=== PATIENT | female | born 1995 | race Caucasian/White ===

== ENCOUNTER 2016-07-08 01:29 | Outpatient (CLI) | payer SELFPAY ==
[2016-07-08 02:26] LABS: APPEARANCE,URINE CLEAR; BILIRUBIN,URINE NEGATIVE (NEGATIVE); GLUCOSE, URINE NEGATIVE (NEGATIVE); KETONES,URINE NEGATIVE (NEGATIVE); LEUKOCYTE ESTERASE,URINE NEGATIVE (NEGATIVE); NITRITE,URINE NEGATIVE (NEGATIVE); PROTEIN,URINE NEGATIVE (NEGATIVE); URINE SPECIFIC GRAVITY 1.012; UROBILINOGEN,URINE NEGATIVE mg/dL (<2.0)
[2016-07-08 03:48] LABS: APPEARANCE,URINE CLEAR; BILIRUBIN,URINE NEGATIVE (NEGATIVE); GLUCOSE, URINE NEGATIVE (NEGATIVE); KETONES,URINE NEGATIVE (NEGATIVE); LEUKOCYTE ESTERASE,URINE NEGATIVE (NEGATIVE); NITRITE,URINE NEGATIVE (NEGATIVE); PROTEIN,URINE NEGATIVE (NEGATIVE); URINE SPECIFIC GRAVITY 1.004; UROBILINOGEN,URINE NEGATIVE mg/dL (<2.0)
[2016-07-08 03:49] LABS: URINE BARBITURATES SCREEN NEGATIVE; URINE METHADONE SCREEN NEGATIVE; URINE PHENCYCLIDINE SCREEN NEGATIVE
[2016-07-08] MEDS ORDERED: HYDROXYZINE PAMOATE 50 MG CAPSULE ONE (04:00)
[2016-07-08] MEDS ORDERED: HYDROXYZINE PAMOATE 50 MG CAPSULE PO ONE (04:00)
--- NOTE | 2016-07-08 04:47 | L&D Admission Assessment ---
LD ADM ASMT Datetime Report Generated by CPN: 07/08/2016 04:45 PATIENT ASSESSMENT Assessment Type: Triage (07/08/2016 02:00:Linda Nyla, RN) WEIGHT Weight (lb): 125 (07/08/2016 02:23:QS system process) Weight (kg): 56.8 (07/08/2016 02:23:QS system process) PAIN Pain Comments: Pt in no obvious distress (07/08/2016 02:00:Linda Nyla, RN) CONTRACTIONS Frequency (min): Irritability/ rare ctx (07/08/2016 03:54:Linda Nyla, RN) Frequency (min): None (07/08/2016 03:30:Linda Nyla, RN) Frequency (min): Irritability (07/08/2016 02:38:Linda Nyla, RN) Frequency (min): Irritability (07/08/2016 02:30:Linda Nyla, RN) Duration (sec): 50-60 (07/08/2016 03:54:Linda Nyla, RN) Quality: Mild (07/08/2016 03:54:Linda Nyla, RN) Quality: Mild (07/08/2016 03:30:Linda Nyla, RN) Quality: Mild (07/08/2016 02:38:Linda Nyla, RN) Quality: Mild (07/08/2016 02:30:Linda Nyla, RN) Resting Tone [place]: Relaxed (07/08/2016 03:54:Linda Redmond RN) Resting Tone [place]: Relaxed (07/08/2016 03:30:Linda Nyla, RN) Resting Tone [place]: Relaxed (07/08/2016 02:38:Linda Dicksonsecathy RN) Resting Tone [place]: Relaxed (07/08/2016 02:30:Linda Nyla, RN) Contraction Comments: Pt sitting up while RN checked DTRs (07/08/2016 02:03:Linda Redmond RN) VAGINAL EXAM Membranes Status: Intact (Annotations: Pt reports no leaking of fluid ) (07/08/2016 02:00:Linda Redmond RN) NEURO Level of Consciousness: Fully Conscious (07/08/2016 02:00:Linda Redmond RN) DTR's/Clonus: DTRs 2+; No Clonus (07/08/2016 02:00:Linda Redmond RN) Headache: Denies (07/08/2016 02:00:Linda Redmond RN) Dizziness: No (07/08/2016 02:00:Linda Redmond RN) Blurred Vision: No (07/08/2016 02:00:Linda Redmond RN) Extremity Numbness/Tingling : None (07/08/2016 02:00:Linda Redmond RN) Extremity Movement: Full Range of Motion (07/08/2016 02:00:Linda Redmond RN) CARDIOVASCULAR Heart Rhythm: Regular (07/08/2016 02:00:Linda Redmond RN) Nailbeds: [place] (07/08/2016 02:00:Linda Redmond RN) Capillary Refill: Less than 3 Seconds (07/08/2016 02:00:Linda Redmond RN) Lower Extremities Edema: None (07/08/2016 02:00:Linda Redmond RN) Lower Extremities Edema Degree: None (07/08/2016 02:00:Linda Redmond RN) Upper Extremities Edema: None (07/08/2016 02:00:Linda Redmond RN) Upper Extremities Edema Degree: None (07/08/2016 02:00:Linda Redmond RN) Facial Edema: None (07/08/2016 02:00:Linda Redmond RN) Juliet's Sign Left Leg: Negative (07/08/2016 02:00:Linda Redmond RN) Juliet's Sign Right Leg: Negative (07/08/2016 02:00:Linda Redmond RN) DVT RISK ASSESSMENT DVT Risk Age: Age less than 41 years (07/08/2016 02:00:Linda Redmond RN) DVT Risk BMI: BMI<31 (07/08/2016 02:00:Linda Redmond RN) DVT Risk Surgery: None Applicable (07/08/2016 02:00:Linda Redmond RN) DVT Risk Other: Women Only- or (<1 month) (07/08/2016 02:00:Linda Redmond RN) DVT Risk Total: 1 (07/08/2016 02:00:QS system process) DVT Risk Text: Low Risk (<10%) No specific measures, early ambulation (07/08/2016 02:00:QS system process) RESPIRATORY Respiratory Effort: Unlabored; Regular Rhythm; Equal Expansion (07/08/2016 02:00:Linda Redmond RN) Breath Sounds, Left: Clear and Equal (07/08/2016 02:00:Linda Redmond RN) Breath Sounds, Right: Clear and Equal (07/08/2016 02:00:Linda Redmond RN) Cough Productivity: None (07/08/2016 02:00:Linda Redmond RN) GASTROINTESTINAL Nausea/Vomiting: Denies (07/08/2016 02:00:Linda Redmond RN) Bowel Sounds: Normoactive; All Quadrants (07/08/2016 02:00:Linda Redmond RN) RUQ Epigastric Pain: Denies (07/08/2016 02:00:Linda Redmond RN) GENITOURINARY Bladder: Nondistended (07/08/2016 02:00:Linda Redmond RN) Frequency of Urination: No (07/08/2016 02:00:Linda Redmond RN) Urination Burning: No (07/08/2016 02:00:Linda Redmond RN) CVA Tenderness: No (07/08/2016 02:00:Linda Redmond RN) Vaginal Bleeding: None (Annotations: None visualized at this time ) (07/08/2016 02:00:Linda Redmond RN) Vaginal Discharge Color: N/A (07/08/2016 02:00:Linda Nyla, RN) INTEGUMENTARY Skin Color: Normal for Race (07/08/2016 02:00:Linda Nyla, RN) Skin Temperature: Warm (07/08/2016 02:00:Linda Nyla, RN) Skin Moisture: Dry (07/08/2016 02:00:Linda Nyla, RN) JEREMIAS SKIN ASSESSMENT Jeremias Scale Sensory Perception: No Impairment- Responds to verbal commands. Has no sensory deficit which would limit ability to feel or voice pain or discomfort (07/08/2016 02:00:Linda Redmond RN) Jeremias Scale Moisture: Rarely Moist- Skin is usually dry. Linen only requires changing at routine intervals (07/08/2016 02:00:Linda Redmond RN) Jeremias Scale Activity: Walks Frequently- Walks outside the room at least twice a day and inside room at least every 2 hours during the day. (07/08/2016 02:00:Linda Redmond RN) Jeremias Scale Mobility: No Limitations- Makes major and frequent changes in position without assistance (07/08/2016 02:00:Linda Redmond RN) Jeremias Scale Nutrition: Excellent- Eats most of every meal. Never refuses a meal. Usually eats a total of 4 or more servings of meat and dairy products. Occasionally eats between meals. Does not require supplementation (07/08/2016 02:00:Linda Redmond RN) Jeremias Scale Friction and Shear: No Apparent Problem- Moves in bed and in chair independently and has sufficient muscle strength to lift up completely during move. Maintains good position in bed or chair at all times (07/08/2016 02:00:Linda Redmond RN) Jeremias Scale Total: 23 (07/08/2016 02:00:QS system process) Jeremias Scale Risk: No Risk of Pressure Ulcer Noted at this Time (07/08/2016 02:00:QS system process) SUPPORT Family Support: Significant Other supportive, at bedside frequently (07/08/2016 02:00:Linda Redmond RN) Emotional State: Calm/Relaxed (07/08/2016 02:00:Linda Redmond RN) SAFETY Call [place]ar Within Reach: Yes (07/08/2016 02:00:Linda Redmond RN) Side Rails Up: Yes (07/08/2016 02:00:Linda Redmond RN) Bed Wheels Locked: Yes (07/08/2016 02:00:Linda Redmond RN) Arm Bands Present: Yes (07/08/2016 02:00:Linda Redmond RN) FALL SCREEN Fall Risk History of Falling: (0) No (07/08/2016 02:00:Linda Redmond RN) Fall Risk Secondary Diagnosis: (0) No (07/08/2016 02:00:Linda Redmond RN) Fall Risk Ambulatory Aid: (0) None/Bedrest/Wheelchair/Nurse Assist (07/08/2016 02:00:Linda Redmond RN) Fall Risk IV Therapy: (0) No (07/08/2016 02:00:Linda Redmond RN) Fall Risk Gait: (0) Normal/Bedrest/Immobile (07/08/2016 02:00:Linda Redmond RN) Fall Risk Mental Status: (0) Oriented to Own Ability (07/08/2016 02:00:Linda Redmond RN) Fall Risk Score: 0 (07/08/2016 02:00:QS system process) Fall Risk Score Definition: No Risk: No action required (07/08/2016 02:00:QS system process) BABY A FHR Baseline Rate (bpm) Baby A: 155 (07/08/2016 03:54:Linda Redmond RN) FHR Baseline Rate (bpm) Baby A: 165 (07/08/2016 02:38:Linda Redmond RN) FHR Baseline Rate (bpm) Baby A: 155 (07/08/2016 02:30:Linda Redmond RN) Variability Baby A: Moderate 6-25 bpm (07/08/2016 03:54:Linda Redmond RN) Variability Baby A: Moderate 6-25 bpm (07/08/2016 02:38:Linda Redmond RN) Variability Baby A: Moderate 6-25 bpm (07/08/2016 02:30:Linda Redmond RN) Accelerations Baby A: None (07/08/2016 03:54:Linda Redmond RN) Accelerations Baby A: 15X15 (07/08/2016 02:38:Linda Redmond RN) Accelerations Baby A: Prolonged (07/08/2016 02:30:Linda Redmond RN) Decelerations Baby A: None (07/08/2016 03:54:Linda Redmond RN) Decelerations Baby A: None (07/08/2016 02:38:Linda Redmond RN) Decelerations Baby A: None (07/08/2016 02:30:Linda Redmond RN)
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
--- NOTE | 2016-07-08 04:47 | L&D Flow Sheet ---
LD Flowsheet Datetime Report Generated by CPN: 07/08/2016 04:45 Datetime: 07/08/2016 04:06 Medications Medication Comments: vistaril 50 mg PO (Linda Nyla, RN) Datetime: 07/08/2016 03:54 Uterine Activity Monitor Mode: External (Linda Nyla, RN) Frequency (min): Irritability/ rare ctx (Linda Nyla, RN) Quality: Mild (Linda Nyla, RN) Duration (sec): 50-60 (Linda Nyla, RN) Resting Tone (Palpate): Relaxed (Linda Nyla, RN) Assessment A Monitor Mode: External US (Linda Nyla, RN) FHR Baseline Rate : 155 (Linda Nyla, RN) Variability: Moderate 6-25 bpm (Linda Nyla, RN) Accelerations: None (Linda Nyla, RN) Decelerations: None (Linda Nyla, RN) Patient Care Comments: monitors discontinued for d/c (Linda Redmond RN) Teaching Instructional Method: Verbal; Patient Instructed; Family/Support Person Instructed; Verbalized Understanding (Linda Redmond RN) Plan of Care: Plan of Care Discussed (Linda Redmond RN) Teaching Comments: U/s results discussed. All pt questions answered. Pt encouraged to make appointment, pt states she will go to [facility] at earliest convenience. (Linda Redmond RN) Datetime: 07/08/2016 03:49 Communication Comments: Call placed to Dr Méndez, report given re: detailed u/s results (HARSHIL 10/29, cervical length 4.2 cm closed, efw 658g, posterior placenta and LVP 3.9cm). Orders received for pt d/c, vistaril 50 mg PO for comfort measures and encourage pt to make appt. (Linda Redmond RN) Datetime: 07/08/2016 03:36 Maternal Comments: EFM D/C'd due to gestational age of 23.6 per US. (Rucsandra Valeria, RN) Datetime: 07/08/2016 03:30 Uterine Activity Monitor Mode: External; Palpation (Linda Nyla, RN) Frequency (min): None (Linda Nyla, RN) Quality: Mild (Linda Nyla, RN) Resting Tone (Palpate): Relaxed (Linda Nyla, RN) Datetime: 07/08/2016 03:26 Monitor Interventions for FHR: Ultrasound Adjusted (Linda Nyla, RN) Communication Communication: RN at Bedside (Linda Nyla, RN) Datetime: 07/08/2016 03:16 Patient Care Comments: Pt returned from u/s (Linda Nyla, RN) Datetime: 07/08/2016 02:38 Uterine Activity Monitor Mode: External (Linda Nyla, RN) Frequency (min): Irritability (Linda Nyla, RN) Quality: Mild (Linda Nyla, RN) Resting Tone (Palpate): Relaxed (Linda Nyla, RN) Assessment A Monitor Mode: External US (Linda Nyla, RN) FHR Baseline Rate : 165 (Linda Nyla, RN) Variability: Moderate 6-25 bpm (Linda Nyla, RN) Accelerations: 15X15 (Linda Nyla, RN) Decelerations: None (Linda Nyla, RN) Comments: Monitors discontinued, pt to u/s with PERIODICALS CLERK (Linda Nyla, RN) Datetime: 07/08/2016 02:30 Uterine Activity Monitor Mode: External; Palpation (Linda Nyla, RN) Frequency (min): Irritability (Linda Nyla, RN) Quality: Mild (Linda Nyla, RN) Resting Tone (Palpate): Relaxed (Linda Nyla, RN) Assessment A Monitor Mode: External US (Linda Nyla, RN) FHR Baseline Rate : 155 (Linda Nyla, RN) Variability: Moderate 6-25 bpm (Linda Nyla, RN) Accelerations: Prolonged (Linda Nyla, RN) Decelerations: None (Linda Nyla, RN) Datetime: 07/08/2016 02:03 Contraction Comments: Pt sitting up while RN checked DTRs (Linda Nyla, RN) Datetime: 07/08/2016 02:02 NBP Sys/Jewels/Mean (mmHg): 112 (QS system process) : 67 (QS system process) : 84 (QS system process) Pulse: 85 (QS system process) Temperature (F): 98.1 (Linda Nyla, RN) Temperature (C): 36.7 (QS system process) Temperature Route: Oral (Linda Nyla, RN) LaborFlag: Antepartum (QS system process) Datetime: 07/08/2016 02:00 Pain Pain Assessment Comments: Pt in no obvious distress (Linda Nyla, RN) Vaginal Exam Membrane Status: Intact (Annotations: Pt reports no leaking of fluid ) (Linda Nyla, RN) Vaginal Bleeding: None (Annotations: None visualized by RN, pt states she noted no blood in toilet after voiding and none in her underwear. ) (Linda Nyla, RN) Maternal Assessment Level of Consciousness: Fully Conscious (Linda Nyla, RN) DTR's/Clonus: DTRs 2+; No Clonus (Linda Nyla, RN) Headache: Denies (Linda Nyla, RN) Breath Sounds, Left: Clear and Equal (Linda Nyla, RN) Breath Sounds, Right: Clear and Equal (Linda Nyla, RN) Nausea/Vomiting: Denies (Linda Nyla, RN) RUQ Epigastric Pain: Denies (Linda Nyla, RN) Patient Care Patient Position/Activity: Left Tilt (Linda Nyla, RN) Teaching Instructional Method: Verbal; Patient Instructed; Family/Support Person Instructed; Verbalized Understanding (Linda Nyla, RN) Plan of Care: Plan of Care Discussed (Lindadaljit Redmond, RN) LaborFlag: Antepartum (QS system process) Datetime: 07/08/2016 01:59 Vital Signs Stage of : Antepartum (Linda Dicksonsel, RN) Datetime: 07/08/2016 01:47 Communication Comments: Call placed to Dr Méndez, report given to include pt presence, hx, complaint of vaginal bleeding, no PNC and unknown HARSHIL. Orders for u/s for estimated weight, HARSHIL, TAVO and cervical length. (Linda Redmond RN)
--- NOTE | 2016-07-08 04:47 | Antepartum Discharge Summary ---
Antepartum DC Datetime Report Generated by CPN: 07/08/2016 04:45 DIET/ACTIVITY/RESTRICTIONS Diet: Regular (07/08/2016 04:07:Linda Nyla, RN) Activity: Normal Activity (07/08/2016 04:07:Linda Nyla, RN) TEACHING/INSTRUCTIONS/REFERRALS Instructions Given To: pt, FOB (07/08/2016 04:07:Linda Nyla, RN) Instructions Understood: Patient Verbalized Understanding; Support Person Verbalized Understanding (07/08/2016 04:07:Linda Redmond RN) Educational Materials- Other: labor kick counts (07/08/2016 04:07:Linda Redmond RN) DISCHARGE INFORMATION Discharged AMA: No (07/08/2016 04:07:Linda Redmond RN) Discharge Date/Time: 07/08/2016 04:07 (07/08/2016 04:07:Linda Redmond RN) Discharged To: Home (07/08/2016 04:07:Linda Redmond RN) Discharge Provider Name: Dr Méndez (07/08/2016 04:07:Linda Redmond RN) Accompanied By: DAMIEN (07/08/2016 04:07:Linda Redmond RN) Discharge Method: Ambulatory (07/08/2016 04:07:Linda Redmond RN) Condition: Stable (07/08/2016 04:07:Linda Redmond RN) FOLLOW UP INFORMATION Follow Up With: Health Department (07/08/2016 04:07:Linda Redmond RN) Follow Up On: As Scheduled (07/08/2016 04:07:Linda Redmond RN) Follow Up Phone Number: [facility] Department - (07/08/2016 04:07:Linda Redmond RN) Comments: see flowsheet for education (07/08/2016 04:07:Linda Redmond RN)
--- NOTE | 2016-07-08 04:47 | L&D Current Admission ---
Current Admit Datetime Report Generated by CPN: 07/08/2016 04:45 ADMISSION INFORMATION Chief Complaint: Vaginal Bleeding (Annotations: Pt states she has had spotting over the last few days when she wipes and has noticed some in the toilet. ) (07/08/2016 02:00:Linda Redmond RN)
--- NOTE | 2016-07-08 04:47 | L&D Discharge Summary ---
OB Discharge Summary Datetime Report Generated by CPN: 07/08/2016 04:45 DISCHARGE DIAGNOSIS Diagnosis/Symptoms: False Labor Number of Babies in Womb: 1 Parity: 2 DIET/ACTIVITY/RESTRICTIONS Diet: Regular Activity: Normal Activity TEACHING/INSTRUCTIONS/REFERRALS Instructions Given To: pt, FOB Instructions Understood: Patient Verbalized Understanding; Support Person Verbalized Understanding Educational Materials- Other: labor kick counts DISCHARGE INFORMATION Discharged AMA: No Discharge Date/Time: 07/08/2016 04:07 Discharged To: Home Discharge Provider Name: Dr Dev Accompanied By: FOB Discharge Method: Ambulatory Condition: Stable FOLLOW UP INFORMATION Follow Up With: Health Department Follow Up On: As Scheduled Follow Up Phone Number: Health Department - Comments: see flowsheet for education
== END 2016-07-08 04:07 | disposition home or self-care (01) ==
LOC: LC 01:29
PROVIDERS: ATTEND Obstetrics & Gynecology
PROC: 4A1HXCZ Monitoring of Products of Conception, Cardiac Rate, External Approach (ICD-10-PCS; principal; 2016-07-08)
DX: O47.02 False labor before 37 completed weeks of gestation, second trimester (principal); Z3A.23 23 weeks gestation of pregnancy
CPT/HCPCS: 59025; 81001; 76815; G0479; 80307

== ENCOUNTER → 2016-07-31 | Outpatient (CLI) | payer SELFPAY | LOC: RAD 15:37 | PROVIDERS: ATTEND Nurse Practitioner Women's Health | DX: Z34.82 Encounter for supervision of other normal pregnancy, second trimester (principal) | CPT/HCPCS: 76805 ==

== ENCOUNTER 2016-08-20 13:01 | Emergency (ER) | payer MEDICAID ==
[2016-08-20 13:22] VITALS: BP 114/69
--- NOTE | 2016-08-20 13:44 | ER Document Report ---
ED Medical Screen (RME) - General Stated Complaint: NOSE BLEED Time seen by provider: 13:44 Mode of Arrival: Ambulatory Information source: Patient Notes: 21-year-old nonsmoker female complaining of spontaneuous nosebleed when she woke up this morning at 8 AM ceased at 12 noon.. Does not take anticoagulants or BC powder. No drugs in her nose. 30 weeks . No Vaginal bleeding. sHe is lightheaded and tired. I have greeted and performed a rapid initial assessment of this patient. A comprehensive ED assessment, evaluation of the patient, analysis of test results , and completion of the medical decision making process will be contacted by additional ED providers. TRAVEL OUTSIDE OF THE [place] IN LAST 30 DAYS: No - Related Data Allergies/Adverse Reactions: No Known Allergies Allergy (Verified 07/08/16 02:22) Past Medical History - Immunizations Immunizations up to date: Yes Hx Diphtheria, Pertussis, Tetanus Vaccination: Yes Physical Exam - Vital signs Vitals: Temp Pulse Resp BP Pulse Ox 98.1 F 85 14 114/69 98 08/20/16 13:22 08/20/16 13:22 08/20/16 13:22 08/20/16 13:22 08/20/16 13:22 Course - Vital Signs Vital signs: Temp Pulse Resp BP Pulse Ox 98.1 F 85 14 114/69 98 08/20/16 13:22 08/20/16 13:22 08/20/16 13:22 08/20/16 13:22 08/20/16 13:22
[2016-08-20 14:53] LABS: ABSOLUTE EOSINOPHILS # (AUTO) 0.2 10^3/uL (0.0-0.6); ABSOLUTE NEUT (AUTO) 6.2 10^3/uL (1.7-8.2); BASOPHILS % (AUTO) 0.5 % (0-2); EOSINOPHILS % (AUTO) 2.1 % (0-6); HEMATOCRIT 33.7 % (36.0-47.0); HEMOGLOBIN 11.4 g/dL (12.0-15.5); HGB HCT DIFFERENCE 0.5; LYMPHOCYTES % (AUTO) 21.5 % (13-45); MEAN CORPUSCULAR HEMOGLOBIN 29.5 pg (27.0-33.4); MEAN CORPUSCULAR HGB CONC 33.8 g/dL (32.0-36.0); MEAN CORPUSCULAR VOLUME 87 fl (80-97); MONOCYTES % (AUTO) 10.7 % (3-13); RED BLOOD COUNT 3.86 10^6/uL (3.72-5.28); RED CELL DISTRIBUTION WIDTH 14.2 % (11.5-14.0); SEGMENTED NEUTROPHILS % (AUTO) 65.2 % (42-78); WHITE BLOOD COUNT 9.5 10^3/uL (4.0-10.5)
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
== END 2016-08-20 17:10 | disposition home or self-care (01) ==
LOC: ER 13:01
DX: O26.893 Other specified pregnancy related conditions, third trimester (principal); R04.0 Epistaxis; Z3A.30 30 weeks gestation of pregnancy
CPT/HCPCS: 36415; 85025; 99283

== ENCOUNTER 2016-09-04 12:38 | Outpatient (CLI) | payer MEDICAID ==
[2016-09-04 13:17] LABS: AMORPHOUS SEDIMENT,URINE TRACE /HPF; APPEARANCE,URINE CLOUDY; BILIRUBIN,URINE NEGATIVE (NEGATIVE); GLUCOSE, URINE NEGATIVE (NEGATIVE); KETONES,URINE NEGATIVE (NEGATIVE); LEUKOCYTE ESTERASE,URINE LARGE (NEGATIVE); NITRITE,URINE NEGATIVE (NEGATIVE); PROTEIN,URINE 30 mg/dL (NEGATIVE); URINE SPECIFIC GRAVITY 1.017
[2016-09-04 13:25] LABS: URINE BARBITURATES SCREEN NEGATIVE; URINE METHADONE SCREEN NEGATIVE; URINE OPIATES LOW NEGATIVE; URINE PHENCYCLIDINE SCREEN NEGATIVE
[2016-09-04 14:00] LABS: ABSOLUTE EOSINOPHILS # (AUTO) 0.3 10^3/uL (0.0-0.6); ABSOLUTE LYMPHOCYTES (AUTO) 2.1 10^3/uL (0.5-4.7); ABSOLUTE MONOCYTES (AUTO) 1.1 10^3/uL (0.1-1.4); ABSOLUTE NEUT (AUTO) 6.2 10^3/uL (1.7-8.2); BASOPHILS % (AUTO) 0.1 % (0-2); EOSINOPHILS % (AUTO) 2.9 % (0-6); HEMATOCRIT 32.5 % (36.0-47.0); HEMOGLOBIN 10.9 g/dL (12.0-15.5); HGB HCT DIFFERENCE 0.2; LYMPHOCYTES % (AUTO) 21.4 % (13-45); MEAN CORPUSCULAR HEMOGLOBIN 28.9 pg (27.0-33.4); MEAN CORPUSCULAR HGB CONC 33.4 g/dL (32.0-36.0); MEAN CORPUSCULAR VOLUME 86 fl (80-97); MONOCYTES % (AUTO) 11.7 % (3-13); RED BLOOD COUNT 3.76 10^6/uL (3.72-5.28); RED CELL DISTRIBUTION WIDTH 14.1 % (11.5-14.0); SEGMENTED NEUTROPHILS % (AUTO) 63.9 % (42-78); WHITE BLOOD COUNT 9.7 10^3/uL (4.0-10.5)
--- NOTE | 2016-09-04 14:00 | L&D Flow Sheet ---
LD Flowsheet Datetime Report Generated by CPN: 09/04/2016 14:00 Datetime: 09/04/2016 13:59 Vital Signs NBP Sys/Jewels/Mean (mmHg): 112 (QS system process) : 63 (QS system process) : 82 (QS system process) Pulse: 82 (QS system process) LaborFlag: Antepartum (QS system process) Datetime: 09/04/2016 13:28 Vital Signs NBP Sys/Jewels/Mean (mmHg): 109 (QS system process) : 60 (QS system process) : 79 (QS system process) Pulse: 89 (QS system process) LaborFlag: Antepartum (QS system process) Datetime: 09/04/2016 13:27 Communication Communication Comments: Reviewed SVE with A. Emmel, CNM. Orders received for CBC with diff and to continue monitoring pt. (Niesha Vitrano, RN) Datetime: 09/04/2016 13:21 Vaginal Exam Dilatation (cm): 0.5 (Niesha Vitrano, RN) Effacement (%): 25 (Niesha Vitrano, RN) Exam by: Triny Arreola RN (Niesha Vitrano, RN) Vaginal Exam Comments: Out of pelvis (Niesha Vitrano, RN) Datetime: 09/04/2016 13:20 Uterine Activity Monitor Interventions for UA: [place] Adjusted (Niesha Vitrano, RN) Datetime: 09/04/2016 13:18 Communication Communication Comments: A. Emmel, CNM on unit, reviewed strip. Reviewed EGA 32.2, , pt complaints, nursing assessment, pt history, toco tracing, FHTs, VS, urine results. Orders for SVE. (Niesha Vitrano, RN) Datetime: 09/04/2016 13:07 Uterine Activity Monitor Interventions for UA: [place] Adjusted (Niesha Vitrano, RN) Datetime: 09/04/2016 13:01 Frequency (min): Unsure (Niesha Vitrano, RN) Pain Pain Scale: 3 (Niesha Vitrano, RN) Pain Presence: Intermittent (Niesha Vitrano, RN) Pain Type: Cramping; Sharp; Contraction (Niesha Vitrano, RN) Pain Location: Abdomen; Back (Niesha Vitrano, RN) Pain Coping: In no apparent distress, resting comfortably (Niesha Vitrano, RN) Membrane Status: Intact (Niesha Vitrano, RN) Vaginal Bleeding: None (Niesha Vitrano, RN) Maternal Assessment Level of Consciousness: Fully Conscious (Niesha Vitrano, RN) DTR's/Clonus: DTRs 2+; No Clonus (Niesha Vitrano, RN) Headache: Temporal (Niesha Vitrano, RN) Breath Sounds, Left: Clear and Equal (Niesha Vitrano, RN) Breath Sounds, Right: Clear and Equal (Niesha Vitrano, RN) Nausea/Vomiting: Hx of Nausea/Vomiting (Niesha Vitrano, RN) RUQ Epigastric Pain: Denies (Niesha Vitrano, RN) LaborFlag: Antepartum (QS system process) Datetime: 09/04/2016 12:58 Vital Signs NBP Sys/Jewels/Mean (mmHg): 112 (QS system process) : 63 (QS system process) : 80 (QS system process) Pulse: 84 (QS system process) LaborFlag: Antepartum (QS system process) Datetime: 09/04/2016 12:56 Patient Care Patient Position/Activity: Right Lateral; Semi-Fowlers (Niesha Arreola RN) I/O Interventions: Clear Liquids Given (Niesha Arreola RN) Teaching Instructional Method: Verbal; Patient Instructed; Family/Support Person Instructed; Verbalized Understanding (Niesha Arreola RN) Plan of Care: Plan of Care Discussed (Niesha Arreola RN) Unit Routine: [place] to Room; Call Farrar; Bed; Unit Personnel; Monitoring; Safety/Fall Risk Prevention; Bathroom Privileges (Niesha Arreola RN)
[2016-09-04] MEDS ORDERED: RINGERS SOLUTION,LACTATED 1,000 ML IV PRN (15:05)
--- NOTE | 2016-09-04 16:00 | L&D Flow Sheet ---
LD Flowsheet Datetime Report Generated by CPN: 09/04/2016 16:00 Datetime: 09/04/2016 15:36 Patient Care Comments: 18 G IV started L wrist site WNL, LR bolusing per order (Niesha Vitrano, RN) Datetime: 09/04/2016 15:30 Monitor Mode: External (Niesha Vitrano, RN) Frequency (min): 2-5 (Niesha Vitrano, RN) Quality: Mild (Niesha Vitrano, RN) Duration (sec): 50-90 (Niesha Vitrano, RN) Duration Criteria: Less than Two 120 Second Contractions (Niesha Vitrano, RN) Pattern: Normal: <= 5 Contractions in 10 Minutes (Niesha Vitrano, RN) Resting Tone (Palpate): Relaxed (Niesha Vitrano, RN) Monitor Mode: External US (Niesha Vitrano, RN) FHR Baseline Rate : 140 (Niesha Vitrano, RN) Variability: Moderate 6-25 bpm (Niesha Vitrano, RN) Accelerations: 15X15 (Niesha Vitrano, RN) Decelerations: None (Niesha Vitrano, RN) Datetime: 09/04/2016 15:20 Patient Care Comments: Juice and cold cloth provided, pt stable (Niesha Vitrano, RN) Datetime: 09/04/2016 15:17 Patient Care Comments: Pt reporting dizziness with IV start attempt (Niesha Vitrano, RN) Datetime: 09/04/2016 15:10 Instructional Method: Verbal; Patient Instructed; Family/Support Person Instructed; Verbalized Understanding (Niesha Vitrano, RN) Plan of Care: Plan of Care Discussed (Niesha Vitrano, RN) Datetime: 09/04/2016 15:02 Monitor Interventions for FHR: Ultrasound Adjusted (Niesha Vitrano, RN) Datetime: 09/04/2016 15:00 Monitor Mode: External; Palpation (Niesha Vitrano, RN) Frequency (min): 2-8 (Niesha Vitrano, RN) Quality: Mild (Niesha Vitrano, RN) Duration (sec): 50-80 (Niesha Vitrano, RN) Duration Criteria: Less than Two 120 Second Contractions (Niesha Vitrano, RN) Pattern: Normal: <= 5 Contractions in 10 Minutes (Niesha Vitrano, RN) Resting Tone (Palpate): Relaxed (Niesha Vitrano, RN) Monitor Mode: External US (Niesha Vitrano, RN) FHR Baseline Rate : 140 (Niesha Vitrano, RN) Variability: Moderate 6-25 bpm (Niesha Vitrano, RN) Accelerations: 15X15 (Niesha Vitrano, RN) Decelerations: None (Niesha Vitrano, RN) Comments: Tracing maternal HR d/t pt position change (Niesha Vitrano, RN) Datetime: 09/04/2016 14:59 NBP Sys/Jewels/Mean (mmHg): 109 (QS system process) : 65 (QS system process) : 81 (QS system process) Pulse: 85 (QS system process) Respirations: 16 (Niesha Vitrano, RN) LaborFlag: OB Triage (QS system process) Datetime: 09/04/2016 14:56 Patient Care Comments: Crackers provided (Niesha Vitrano, RN) Datetime: 09/04/2016 14:55 Communication Comments: Dr. Gaitan on unit. Reviewed urine results, CBC, pt history, nursing assessment. Reviewed tracing. Orders received for 1 L LR bolus IV x1 now. (Niesha Vitrano, RN) Datetime: 09/04/2016 14:48 Stage of : OB Triage (Lisbet Anderson RN) Monitor Interventions for UA: [place] Adjusted (Lisbet Anderson RN) Communication: RN at Bedside; RN Reviewed Strip (Lisbet Anderson RN) Datetime: 09/04/2016 14:31 Stage of : OB Triage (Lisbet Anderson RN) Respirations: 18 (Lisbet Anderson, BARRIE) Monitor Mode: External (Lisbet Anderson, RN) Monitor Interventions for UA: [place] Adjusted (Lisbet Anderson, RN) Frequency (min): irreg with irritability (Lisbet Anderson, RN) Quality: Mild (Lisbet Anderson, RN) Duration (sec): 40-90 (Lisbet Anderson, RN) Resting Tone (Palpate): Relaxed (Lisbet Anderson, BARRIE) Monitor Mode: External US (Lisbet Anderson, RN) Monitor Interventions for FHR: Ultrasound Adjusted (Lisbet Anderson RN) FHR Baseline Rate : 125 (Lisbet Anderson, BARRIE) FHR Baseline Changes: No Baseline Change (Lisbet Anderson, BARRIE) Variability: Moderate 6-25 bpm (Lisbet Anderson, RN) Accelerations: 15X15 (Lisbet Anderson, RN) Decelerations: None (Lisbet Anderson, BARRIE) Pain Scale: 2 (Lisbet Anderson, BARRIE) Pain Presence: Intermittent (Lisbet Anderson, BARRIE) Pain Type: Cramping (Lisbet Anderson, BARRIE) Pain Location: Abdomen (Lisbet Anderson, BARRIE) Pain Relief Measures: Comfort Measures (Lisbet Anderson, BARRIE) Pain Coping: Talking Through Contractions (Lisbet Anderson, RN) Patient Position/Activity: Right Lateral; Low Fowlers (Lisbet Anderson, BARRIE) Comfort Measures: Family Support (Lisbet Anderson, BARRIE) I/O Interventions: Clear Liquids Given (Lisbet Anderson, BARRIE) I/O Interventions: Up to BR (Lisbet Anderson RN) I/O Interventions: Up to BR (Niesha Arreola RN) Instructional Method: Verbal; Patient Instructed; Family/Support Person Instructed; Verbalized Understanding (Lisbet Anderson RN) Plan of Care: Plan of Care Discussed (Lisbet Anderson RN) PTL/PROM: Hydration (Lisbet Anderson RN) Communication: RN at Bedside; RN Reviewed Strip (Lisbet Anderson RN) LaborFlag: OB Triage (QS system process) Datetime: 09/04/2016 14:30 Monitor Mode: External (Niesha Vitrano, RN) Frequency (min): 2-5 (Niesha Vitrano, RN) Quality: Mild (Niesha Vitrano, RN) Duration (sec): 50-80 (Niesha Vitrano, RN) Duration Criteria: Less than Two 120 Second Contractions (Niesha Vitrano, RN) Pattern: Normal: <= 5 Contractions in 10 Minutes (Niesha Vitrano, RN) Resting Tone (Palpate): Relaxed (Niesha Vitrano, RN) Monitor Mode: External US (Niesha Eleazarano, RN) FHR Baseline Rate : 130 (Niesha Vitrano, RN) Variability: Moderate 6-25 bpm (Niesha Vitrano, RN) Accelerations: 15X15 (Niesha Vitrano, RN) Decelerations: None (Niesha Vitrano, RN) Datetime: 09/04/2016 14:29 NBP Sys/Jewels/Mean (mmHg): 120 (QS system process) : 74 (QS system process) : 90 (QS system process) Pulse: 85 (QS system process) Respirations: 15 (Niesha Arreola RN) LaborFlag: OB Triage (QS system process) Datetime: 09/04/2016 14:15 Stage of : OB Triage (Lisbet Anderson RN) Monitor Interventions for UA: [place] Adjusted (Lisbet Anderson RN) Communication: RN at Bedside; RN Reviewed Strip (Lisbet Anderson RN) Datetime: 09/04/2016 14:00 Monitor Mode: External; Palpation (Niesha Arreola RN) Frequency (min): Irregular/Irritability (Niesha Arreola RN) Quality: Mild (Niesha Vitrano, RN) Duration (sec): 60-80 (Niesha Elba, RN) Duration Criteria: Less than Two 120 Second Contractions (Nieshasheng Arreola, RN) Pattern: Normal: <= 5 Contractions in 10 Minutes (Nieshasheng Arreola, RN) Resting Tone (Palpate): Relaxed (Niesha Arreola, RN) Monitor Mode: External US (Niesha Arreola, RN) FHR Baseline Rate : 140 (Nieshasheng Arreola, RN) Variability: Moderate 6-25 bpm (Niesha Elba, RN) Accelerations: 15X15 (Niesha Elba, RN) Decelerations: None (Niesha Elba, RN)
--- NOTE | 2016-09-04 18:00 | L&D Flow Sheet ---
LD Flowsheet Datetime Report Generated by CPN: 09/04/2016 18:00 Datetime: 09/04/2016 17:11 Stage of : OB Triage (Lisbet Anderson RN) Respirations: 18 (Lisbet Anderson RN) Temperature (F): 98.2 (Lisbet Anderson RN) Temperature (C): 36.8 (QS system process) Temperature Route: Oral (Lisbet Anderson RN) Monitor Mode: External (Lisbet Anderson RN) Frequency (min): IRRITABILITY (Lisbet Anderson RN) Quality: Mild (Lisbet Anderson RN) Duration (sec): 10-60 (Lisbet Anderson RN) Resting Tone (Palpate): Relaxed (Lisbet Anderson RN) Contraction Comments: PT DENIES CRAMPING OR UC'S (Lisbet Anderson RN) Monitor Mode: External US (Lisbet Anderson RN) Monitor Interventions for FHR: Ultrasound Adjusted (Lisbet Anderson RN) FHR Baseline Rate : 145 (Lisbet Anderson RN) FHR Baseline Changes: No Baseline Change (Lisbet Anderson RN) Variability: Moderate 6-25 bpm (Lisbet Anderson RN) Accelerations: 15X15 (Lisbet Anderson, BARRIE) Decelerations: None (Lisbet Anderson RN) Pain Scale: 0 (Lisbet Anderson RN) Pain Presence: None/Denies (Lisbet Anderson RN) Pain Type: N/A (Lisbet Anderson RN) Pain Relief Measures: Comfort Measures (Lisbet Anderson RN) Patient Position/Activity: Right Lateral; Low Fowlers (Lisbet Anderson, BARRIE) Comfort Measures: Family Support (Lisbet Anderson, BARRIE) I/O Interventions: Up to BR (Lisbet Anderson, BARRIE) Instructional Method: Verbal; Patient Instructed; Family/Support Person Instructed; Verbalized Understanding (Lisbet Anderson RN) Plan of Care: Plan of Care Discussed; Labor (Lisbet Anderson, RN) Pain Management: Pain Scale/Goals; Comfort Measures (Lisbet Anderson, BARRIE) PTL/PROM: Hydration (Lisbet Anderson, BARRIE) Related: Common Discomforts of ; Maternal Physical Changes; Maternal Emotional Changes; Nutrition; Hydration; Activity and Rest (Lisbet Anderson, BARRIE) Teaching Comments: PTL, DEHYDRATION, KICK COUNTS CARE NOTES (Lisbet Anderson, BARRIE) Communication: RN at Bedside; RN Reviewed Strip; Report Given to @ DR PADILLA (Lisbet Anderson, RN) Notification Reason: Status; Uterine Activity; Pain (Lisbet Anderson, BARRIE) Communication Comments: D/C ORDERS OBTAINED. PT D/C IN STABLE CONDITION W/O C/O @ 7057 ACCOMPANIED BY FOB. (Lisbet Anderson, BARRIE) LaborFlag: OB Triage (QS system process) Datetime: 09/04/2016 16:58 NBP Sys/Jewels/Mean (mmHg): 115 (QS system process) : 65 (QS system process) : 85 (QS system process) Pulse: 98 (QS system process) LaborFlag: OB Triage (QS system process) Datetime: 09/04/2016 16:45 Stage of : OB Triage (Lisbet Anderson RN) Respirations: 18 (Lisbet Anderson RN) Monitor Mode: External (Lisbet Anderson RN) Monitor Interventions for UA: [place] Adjusted (Lisbet Anderson RN) Frequency (min): IRRITABILITY (Lisbet Anderson RN) Duration (sec): 10-25 (Lisbet Anderson RN) Resting Tone (Palpate): Relaxed (Lisbet Anderson RN) Monitor Mode: External US (Lisbet Anderson RN) Monitor Interventions for FHR: Ultrasound Adjusted (Lisbet Anderson RN) FHR Baseline Rate : 145 (Lisbet Anderson RN) FHR Baseline Changes: No Baseline Change (Lisbet Anderson RN) Variability: Moderate 6-25 bpm (Lisbet Anderson RN) Accelerations: 15X15 (Lisbet Anderson RN) Decelerations: None (Lisbet Anderson RN) Pain Relief Measures: Comfort Measures (Lisbet Anderson RN) Pain Coping: Talking Through Contractions (Lisbet Anderson RN) Comfort Measures: Family Support (Lisbet Anderson RN) I/O Interventions: Up to BR (Lisbet Anderson RN) Communication: RN at Bedside; RN Reviewed Strip (Lisbet Anderson RN) LaborFlag: OB Triage (QS system process) Datetime: 09/04/2016 16:29 NBP Sys/Jewels/Mean (mmHg): 110 (QS system process) : 70 (QS system process) : 85 (QS system process) Pulse: 92 (QS system process) LaborFlag: OB Triage (QS system process) Datetime: 09/04/2016 16:15 Monitor Interventions for UA: [place] Adjusted (Niesha Arreola RN) Monitor Interventions for FHR: Ultrasound Adjusted (Niesha Vitrano, RN) Communication Comments: Report to Jacqueline Ochoa RN; care relinquished (Niesha Arreola, RN) Datetime: 09/04/2016 16:00 Monitor Mode: External; Palpation (Niesha Arreola, RN) Frequency (min): Irregular (Niesha Arreola, RN) Quality: Mild (Niesha Elba, RN) Duration (sec): 50-60 (Niesha Elba, RN) Duration Criteria: Less than Two 120 Second Contractions (Niesha Elba, RN) Pattern: Normal: <= 5 Contractions in 10 Minutes (Niesha Eleazarano, RN) Resting Tone (Palpate): Relaxed (Niesha Arreola, RN) Monitor Mode: External US (Niesha Arreola, RN) FHR Baseline Rate : 145 (Niesha Vitrlizabeth, RN) Variability: Moderate 6-25 bpm (Niesha Vitrano, RN) Accelerations: 15X15 (Niesha Eleazarano, RN) Decelerations: None (Niesha Elba, RN)
== END 2016-09-04 17:27 | disposition home or self-care (01) ==
LOC: LC 12:38
PROVIDERS: ATTEND Obstetrics & Gynecology
PROC: 4A1HXCZ Monitoring of Products of Conception, Cardiac Rate, External Approach (ICD-10-PCS; principal; 2016-09-04)
DX: O47.1 False labor at or after 37 completed weeks of gestation (principal); R11.2 Nausea with vomiting, unspecified; Z3A.32 32 weeks gestation of pregnancy
CPT/HCPCS: 36415; 59025; 80307; 81001; 85025; 87086

== ENCOUNTER 2016-09-18 13:59 | Outpatient (CLI) | payer MEDICAID ==
[2016-09-18 15:01] LABS: APPEARANCE,URINE CLOUDY; BILIRUBIN,URINE NEGATIVE (NEGATIVE); GLUCOSE, URINE NEGATIVE (NEGATIVE); KETONES,URINE NEGATIVE (NEGATIVE); LEUKOCYTE ESTERASE,URINE LARGE (NEGATIVE); NITRITE,URINE NEGATIVE (NEGATIVE); PROTEIN,URINE 30 mg/dL (NEGATIVE); UROBILINOGEN,URINE NEGATIVE mg/dL (<2.0)
[2016-09-18 15:15] LABS: URINE BARBITURATES SCREEN NEGATIVE; URINE METHADONE SCREEN NEGATIVE; URINE OPIATES LOW NEGATIVE; URINE PHENCYCLIDINE SCREEN NEGATIVE
--- NOTE | 2016-09-18 15:46 | Non Stress Test Report ---
Non Stress Test Datetime Report Generated by CPN: 09/18/2016 15:45 DEMOGRAPHIC EGA NST: 34.2 EGA NST: 32.2 INDICATION Indication for Study: Ordered by Provider Indication for Study: labor Indication for Study (NST) Other: DR PADILLA MONITORING Monitor Explained: Monitor Explained; Test Explained; Patient Verbalized Understanding Monitor Explained: Monitor Explained; Test Explained; Patient Verbalized Understanding Time on Monitor: 09/18/2016 14:40 Time on Monitor: 09/04/2016 12:57 Time off Monitor: 09/18/2016 15:20 Time off Monitor: 09/04/2016 17:11 NST Duration: 40 NST Duration: 254 NST INTERVENTIONS NST Interventions: PO Hydration NST Interventions: PO Hydration; IV Fluids; Reposition Patient Physician Notified NST: P Vela CNM BABY A: [id number] BABY A Movement : Present Movement : Present Contraction Frequency : Irr Contraction Frequency : IRREG WITH IRRITABILITY FHR Baseline : 135 FHR Baseline : 140 Accelerations : 15X15 Accelerations : 15X15 Decelerations : None Decelerations : None Variability : Moderate 6-25bpm Variability : Moderate 6-25bpm NST Review: Meets Criteria for Reactive NST NST Review: Meets Criteria for Reactive NST NST Review and Verified By : Josseline FISH RN NST Results: Reactive NST Results: Reactive NST REPORT Report Trigger: Send Report
== END 2016-09-18 15:25 | disposition home or self-care (01) ==
LOC: LC 13:59
PROVIDERS: ATTEND Obstetrics & Gynecology
PROC: 4A1HXCZ Monitoring of Products of Conception, Cardiac Rate, External Approach (ICD-10-PCS; principal; 2016-09-18)
DX: O47.03 False labor before 37 completed weeks of gestation, third trimester (principal); O23.43 Unspecified infection of urinary tract in pregnancy, third trimester; Z3A.34 34 weeks gestation of pregnancy
CPT/HCPCS: 59025; 80307; 81001; 87086

== ENCOUNTER 2016-09-25 16:41 | Outpatient (CLI) | payer MEDICAID ==
[2016-09-25] MEDS ORDERED: OXYCODONE-ACETAMINOPHEN 5-325 MG TABLET ONE (17:11)
[2016-09-25] MEDS ORDERED: OXYCODONE-ACETAMINOPHEN 5-325 MG TABLET PO ONE (17:11)
[2016-09-25 17:18] LABS: APPEARANCE,URINE SLIGHTLY-CLOUDY; BILIRUBIN,URINE NEGATIVE (NEGATIVE); GLUCOSE, URINE NEGATIVE (NEGATIVE); KETONES,URINE NEGATIVE (NEGATIVE); LEUKOCYTE ESTERASE,URINE LARGE (NEGATIVE); NITRITE,URINE NEGATIVE (NEGATIVE); PROTEIN,URINE NEGATIVE (NEGATIVE); URINE SPECIFIC GRAVITY 1.009; UROBILINOGEN,URINE NEGATIVE mg/dL (<2.0)
[2016-09-25 17:36] LABS: URINE BARBITURATES SCREEN NEGATIVE; URINE METHADONE SCREEN NEGATIVE; URINE OPIATES LOW NEGATIVE; URINE PHENCYCLIDINE SCREEN NEGATIVE
[2016-09-25] MEDS ORDERED: RINGERS SOLUTION,LACTATED 1,000 ML IV PRN (17:42)
[2016-09-25] MEDS ORDERED: RINGERS SOLUTION,LACTATED 1,000 ML IV ONE (17:42)
[2016-09-25] MEDS ORDERED: NIFEDIPINE 10 MG CAPSULE PO ONE (17:47)
[2016-09-25] MEDS ORDERED: NIFEDIPINE 10 MG CAPSULE ONE (17:51)
[2016-09-25 19:46] LABS: CHLAM PCR NOT DETECTED (NOT DETECT)
--- NOTE | 2016-09-25 20:01 | L&D Flow Sheet ---
LD Flowsheet Datetime Report Generated by CPN: 09/25/2016 20:00 Datetime: 09/25/2016 19:56 NBP Sys/Jewels/Mean (mmHg): 108 (QS system process) : 58 (QS system process) : 77 (QS system process) Pulse: 93 (QS system process) LaborFlag: OB Triage (QS system process) Datetime: 09/25/2016 19:45 Monitor Mode: External; Palpation (Crystal Cory, RN) Frequency (min): 2.5-4 (Crystal Cory, RN) Quality: Mild (Crystal Milton, RN) Duration (sec): 50-70 (Crystal Milton, RN) Duration Criteria: Less than Two 120 Second Contractions (Crystal Cory, RN) Resting Tone (Palpate): Relaxed (Crystal Milton, RN) Monitor Mode: External US (Crystal Cory, RN) FHR Baseline Rate : 135 (Crystal Milton, RN) Variability: Moderate 6-25 bpm (Crystal Milton, RN) Accelerations: 15X15 (Crystal Cory, RN) Patient Position/Activity: Left Tilt; Supine (Crystal Cory, RN) Datetime: 09/25/2016 19:41 NBP Sys/Jewels/Mean (mmHg): 110 (QS system process) : 60 (QS system process) : 78 (QS system process) Pulse: 88 (QS system process) LaborFlag: OB Triage (QS system process) Datetime: 09/25/2016 19:35 Dilatation (cm): 1.5 (Crystal Milton, RN) Effacement (%): 50 (Tiffanie Ray RN) Station: -2 (Tiffanie Ray RN) Exam by: Dr. Gregory (Tiffanie Ray RN) Vaginal Bleeding: None (Tiffanie Ray RN) Cervix, Consistency: Soft (Tiffanie Ray RN) Communication: Provider at Bedside (Tiffanie Ray RN) Datetime: 09/25/2016 19:33 Stage of : OB Triage (Tiffanie Ray RN) Strip Reviewed by: Jair Ray RN (Tiffanie Ray RN) Communication: Report Given to @ Dr. Gregory (Tiffanie Ray RN) Notification Reason: Status Update; Labor Status (Tiffanie Ray RN) Datetime: 09/25/2016 19:26 NBP Sys/Jewels/Mean (mmHg): 115 (QS system process) : 62 (QS system process) : 83 (QS system process) Pulse: 86 (QS system process) LaborFlag: OB Triage (QS system process) Datetime: 09/25/2016 19:17 Level of Consciousness: Fully Conscious (Crystal Cory, RN) Headache: Denies (Crystal Milton, RN) Breath Sounds, Left: Clear and Equal (Crystal Milton, RN) Breath Sounds, Right: Clear and Equal (Crystal Cory, RN) Nausea/Vomiting: Denies (Crystal Milton, RN) RUQ Epigastric Pain: Denies (Crystal Milton, RN) Datetime: 09/25/2016 19:15 Monitor Mode: External; Palpation (Crystal Milton, RN) Frequency (min): 2.5-4 (Crystal Milton, RN) Quality: Mild/Moderate (Crystal Milton, RN) Duration Criteria: Less than Two 120 Second Contractions (Crystal Milton, RN) Resting Tone (Palpate): Relaxed (Crystal Cory, RN) Monitor Mode: External US (Crystal Cory, RN) FHR Baseline Rate : 135 (Crystal Milton, RN) Variability: Moderate 6-25 bpm (Crystal Milton, RN) Accelerations: 15X15 (Crystal Milton, RN) Patient Position/Activity: Left Tilt; High Fowlers (Crystal Milton, RN) Communication: Report Given to @ C Cory RN (Alfonso Ciara, RN) Datetime: 09/25/2016 19:12 NBP Sys/Jewels/Mean (mmHg): 111 (QS system process) : 60 (QS system process) : 81 (QS system process) Pulse: 89 (QS system process) LaborFlag: OB Triage (QS system process) Datetime: 09/25/2016 19:11 Medication Comments: LR 125ml/hr (Alfonso Ciara, RN) Datetime: 09/25/2016 19:00 Monitor Mode: External; Palpation (Alfonso Ciara, RN) Frequency (min): 2-3 (Alfonso Ciara, RN) Quality: Mild/Moderate (Alfonso Ciara, RN) Duration (sec): 60-80 (Alfonso Ciara, RN) Duration Criteria: Less than Two 120 Second Contractions (Alfonso Ciara, RN) Pattern: Normal: <= 5 Contractions in 10 Minutes (Alfonso Ciara, RN) Resting Tone (Palpate): Relaxed (Alfonso Ciara, RN) Monitor Mode: External US (Alfonso Ciara, RN) FHR Baseline Rate : 135 (Alfonso Ciara, RN) Variability: Moderate 6-25 bpm (Alfonso Ciara, RN) Accelerations: 15X15 (Alfonso Ciara, RN) Decelerations: None (Alfonso Ciara, RN) Communication: RN at Bedside; RN Reviewed Strip (Alfonso Ciara, RN) Datetime: 09/25/2016 18:58 I/O Interventions: Up to BR (Alfonso Ciara, RN) Datetime: 09/25/2016 18:56 NBP Sys/Jewels/Mean (mmHg): 117 (QS system process) : 71 (QS system process) : 88 (QS system process) Pulse: 87 (QS system process) LaborFlag: OB Triage (QS system process) Datetime: 09/25/2016 18:42 NBP Sys/Jewels/Mean (mmHg): 116 (QS system process) : 70 (QS system process) : 87 (QS system process) Pulse: 93 (QS system process) LaborFlag: OB Triage (QS system process) Datetime: 09/25/2016 18:30 Respirations: 18 (Alfonso Urbina RN) Monitor Mode: External; Palpation (Alfonso Urbina RN) Frequency (min): 2-3 (Alfonso Urbina RN) Quality: Moderate (Alfonso Urbina RN) Duration (sec): 60-80 (Alfonso Urbina RN) Duration Criteria: Less than Two 120 Second Contractions (Alfonso Urbina RN) Pattern: Normal: <= 5 Contractions in 10 Minutes (Alfonso Urbina RN) Resting Tone (Palpate): Relaxed (Alfonso Urbina RN) Monitor Mode: External US (Alfonso Urbina RN) FHR Baseline Rate : 135 (Alfonso Urbina RN) Variability: Moderate 6-25 bpm (Alfonso Urbina RN) Accelerations: 15X15 (Alfonso Urbina RN) Decelerations: None (Alfonso Urbina RN) Pain Scale: 3 (Alfonso Urbina RN) Pain Presence: Intermittent (Alfonso Urbina RN) Pain Type: Contraction (Alfonso Urbina RN) Level of Consciousness: Fully Conscious (Alfonso Urbina RN) Headache: Denies (Alfonso Urbina RN) Nausea/Vomiting: Denies (Alfonso Urbina RN) Communication: RN at Bedside; RN Reviewed Strip (Alfonso Urbina RN) LaborFlag: OB Triage (QS system process) Datetime: 09/25/2016 18:27 NBP Sys/Jewels/Mean (mmHg): 119 (QS system process) : 64 (QS system process) : 86 (QS system process) Pulse: 93 (QS system process) LaborFlag: OB Triage (QS system process) Datetime: 09/25/2016 18:14 NBP Sys/Jewels/Mean (mmHg): 113 (QS system process) : 65 (QS system process) : 82 (QS system process) Pulse: 89 (QS system process) LaborFlag: OB Triage (QS system process) Datetime: 09/25/2016 18:11 Medication Comments: LR Bolus (Alfonso Urbina RN) IV/Blood Work: IV Started (Alfonso Urbina RN) Patient Care Comments: 18G R Forearm, pt tolerated well, site wnl, good blood return. (Alfonso Urbina RN) Datetime: 09/25/2016 17:59 Respirations: 18 (Alfonso Urbina RN) Monitor Mode: External; Palpation (Alfonso Urbina RN) Frequency (min): 1-3 (Alfonso Urbina RN) Quality: Moderate (Alfonso Urbina RN) Duration (sec): 40-70 (Alfonso Urbina RN) Duration Criteria: Less than Two 120 Second Contractions (Alfonso Urbina RN) Pattern: Normal: <= 5 Contractions in 10 Minutes (Alfonso Urbina RN) Resting Tone (Palpate): Relaxed (Alfonso Urbina RN) Monitor Mode: External US (Alfonso Urbina RN) Monitor Interventions for FHR: Ultrasound Adjusted (Alfonso Urbina RN) FHR Baseline Rate : 140 (Alfonso Urbina RN) Variability: Moderate 6-25 bpm (Alfonso Urbina RN) Accelerations: 15X15 (Alfonso Urbina RN) Decelerations: None (Alfonso Urbina RN) Pain Scale: 3 (Alfonso Urbina RN) Pain Type: Contraction (Alfonso Urbina RN) Level of Consciousness: Fully Conscious (Alfonso Urbina RN) Headache: Denies (Alfonso Urbina RN) Nausea/Vomiting: Denies (Alfonso Urbina RN) Communication: RN at Bedside; RN Reviewed Strip (Alfonso Urbina RN) LaborFlag: OB Triage (QS system process) Datetime: 09/25/2016 17:58 NBP Sys/Jewels/Mean (mmHg): 118 (QS system process) : 56 (QS system process) : 80 (QS system process) Pulse: 104 (QS system process) LaborFlag: OB Triage (QS system process) Datetime: 09/25/2016 17:53 Medication Comments: Procardia 20mg PO (Alfonso Urbina, RN) Datetime: 09/25/2016 17:42 NBP Sys/Jewels/Mean (mmHg): 122 (QS system process) : 81 (QS system process) : 96 (QS system process) Pulse: 102 (QS system process) Communication Comments: Orders obtained from Dr Gregory for Procardia 20mg PO now. (Alfonso Urbina, RN) LaborFlag: OB Triage (QS system process) Datetime: 09/25/2016 17:41 Procedures: Sterile Speculum Exam (Alfonso Urbina RN) Patient Care Comments: GBS, GC/CHLAM, WET PREP Obtained. (Alfonso Urbina RN) Datetime: 09/25/2016 17:30 Respirations: 20 (Alfonso Urbina RN) Monitor Mode: External; Palpation (Alfonso Urbina RN) Frequency (min): 2-3 (Alfonso Urbina RN) Quality: Moderate (Alfonso Urbina RN) Duration (sec): 50-80 (Alfonso Urbina RN) Resting Tone (Palpate): Relaxed (Alfonso Urbina RN) Pain Scale: 3 (Alfonso Urbina RN) Pain Presence: Intermittent (Alfonso Urbina RN) Pain Type: Contraction (Alfonso Urbina RN) Pain Location: Abdomen (Alfonso Urbina RN) Pain Relief Measures: Pain Medication Given; Comfort Measures (Alfonso Urbina RN) Pain Coping: Talking Through Contractions; Declines Medication or Epidural (Alfonso Urbina RN) Level of Consciousness: Fully Conscious (Alfonso Urbina RN) Headache: Denies (Alfonso Urbina RN) Nausea/Vomiting: Denies (Alfonso Urbina RN) Comfort Measures: Breathing/Relaxation (Alfonso Ciara, RN) Communication: RN at Bedside; RN Reviewed Strip (Alfonso Urbina RN) LaborFlag: OB Triage (QS system process) Datetime: 09/25/2016 17:29 Monitor Mode: External US (Alfonso Urbina, RN) FHR Baseline Rate : 135 (Alfonso Urbina, RN) Variability: Moderate 6-25 bpm (Alfonso Urbina, RN) Accelerations: 15X15 (Alfonso Urbina, RN) Decelerations: None (Alfonso Urbina, RN) Datetime: 09/25/2016 17:28 Communication Comments: Orders for Wet Prep, GC/Chlam, GBS. Presentation Vertex per ultrasound. (Alfonso Urbina RN) Datetime: 09/25/2016 17:26 NBP Sys/Jewels/Mean (mmHg): 113 (QS system process) : 70 (QS system process) : 85 (QS system process) Pulse: 94 (QS system process) LaborFlag: OB Triage (QS system process) Datetime: 09/25/2016 17:19 Communication Comments: Dr Gregory notified of pt last US in July baby was breech, and ctx q2-3min; orders to start IV LR bolus in 30min. States she will come US pt for presentation. (Alfonso Benítezeet, RN) Datetime: 09/25/2016 17:15 Medication Comments: Percocet 2 tab PO (Alfonso Urbina, RN) Datetime: 09/25/2016 17:07 Dilatation (cm): 1.5 (Alfonso Urbina, RN) Effacement (%): 50 (Alfonso Urbina, RN) Station: -2 (Alfonso Urbina, BARRIE) Exam by: Dr Gregory (Alfonso Urbina, BARRIE) Cervix, Consistency: Soft (Alfonso Urbina, BARRIE) Cervix, Position: Anterior (Alfonso Urbina, BARRIE) Communication Comments: Orders for 2 percocet tabs PO and PO hydrate (Alfonso Urbina, BARRIE) Datetime: 09/25/2016 17:06 Communication Comments: Dr Gregory at bedside (Alfonso Urbina, RN) Datetime: 09/25/2016 17:03 Respirations: 20 (Alfonso Urbina RN) Temperature (F): 97.7 (Alfonso Urbina RN) Temperature (C): 36.5 (QS system process) Pain Scale: 4 (Alfonso Urbina RN) Pain Presence: Intermittent (Alfonso Urbina RN) Pain Type: Contraction (Alfonso Urbina RN) Pain Location: Abdomen (Alfonso Urbina RN) Pain Relief Measures: Comfort Measures (Alfonso Urbina RN) Pain Coping: Breathing Through Contractions (Alfonso Urbina RN) Comfort Measures: Breathing/Relaxation (Alfonso Urbina RN) Communication Comments: Dr Gregory updated on pt; notifed of pt complaint, vs, efm strip, ctx palpate moderately. Provider states she will come to assess pt. (Alfonso Urbina RN) LaborFlag: OB Triage (QS system process) Datetime: 09/25/2016 17:00 Frequency (min): Irregular (Alfonso Urbina RN) Vaginal Bleeding: None (Alfonso Urbina RN) Level of Consciousness: Fully Conscious (Alfonso Urbina RN) DTR's/Clonus: DTRs 2+; No Clonus (Alfonso Urbina RN) Headache: Denies (Alfonso Urbina RN) Breath Sounds, Left: Clear and Equal (Alfonso Urbina RN) Breath Sounds, Right: Clear and Equal (Alfonso Ciara, RN) Nausea/Vomiting: Denies (Alfonso Kotharit, RN) RUQ Epigastric Pain: Denies (Alfonso Benítezeet, RN) Datetime: 09/25/2016 16:58 Quality: Moderate (Alfonso Kotharit, RN) Datetime: 09/25/2016 16:56 NBP Sys/Jewels/Mean (mmHg): 105 (QS system process) : 71 (QS system process) : 83 (QS system process) Pulse: 94 (QS system process) LaborFlag: OB Triage (QS system process)
[2016-09-25] MEDS ORDERED: ZOLPIDEM TARTRATE 5 MG TABLET PO ONE (22:30)
[2016-09-25] MEDS ORDERED: ZOLPIDEM TARTRATE 5 MG TABLET ONE (22:33)
== END 2016-09-25 22:42 | disposition home or self-care (01) ==
LOC: LC 16:41
PROVIDERS: ATTEND Specialist
PROC: 4A1HXCZ Monitoring of Products of Conception, Cardiac Rate, External Approach (ICD-10-PCS; principal; 2016-09-25)
DX: O47.03 False labor before 37 completed weeks of gestation, third trimester (principal); Z3A.35 35 weeks gestation of pregnancy
CPT/HCPCS: 59025; 87086; 87210; 87077; 87088; 81001; 87081; 80307; 87491; 87591; J3490 ×2

== ENCOUNTER 2016-10-01 14:52 | Outpatient (CLI) | payer MEDICAID ==
--- NOTE | 2016-10-01 15:21 | Non Stress Test Report ---
Non Stress Test Datetime Report Generated by CPN: 10/01/2016 15:21 DEMOGRAPHIC Test Number: 1 EGA NST: 35.2 INDICATION Indication for Study: Ordered by Provider VITAL SIGNS Temperature - NST: 97.9 MONITORING Monitor Explained: Monitor Explained; Test Explained; Patient Verbalized Understanding Time on Monitor: 09/25/2016 16:54 Time off Monitor: 09/25/2016 22:21 NST Duration: 327 NST INTERVENTIONS NST Interventions: PO Hydration; IV Fluids; Reposition Patient Physician Notified NST: [place] BABY A Movement : Present Contraction Frequency : 2-6 FHR Baseline : 145 Accelerations : 15X15 Decelerations : None Variability : Moderate 6-25bpm NST Review: Meets Criteria for Reactive NST NST Review and Verified By : NELIA Cervantes NST Results: Reactive NST REPORT Report Trigger: Send Report
--- NOTE | 2016-10-01 16:04 | Non Stress Test Report ---
Non Stress Test Datetime Report Generated by CPN: 10/01/2016 16:04 DEMOGRAPHIC EGA NST: 36.1 INDICATION Indication for Study: Ordered by Provider MONITORING Monitor Explained: Monitor Explained; Test Explained; Patient Verbalized Understanding Time on Monitor: 10/01/2016 15:23 Time off Monitor: 10/01/2016 16:02 NST Duration: 39 NST INTERVENTIONS NST Interventions: PO Hydration Physician Notified NST: LAM BABY A Movement : Present Contraction Frequency : 3-5 FHR Baseline : 140 Accelerations : 15X15 Decelerations : None Variability : Moderate 6-25bpm NST Review: Meets Criteria for Reactive NST NST Review and Verified By : Billy PICKENS NST Results: Reactive NST REPORT Report Trigger: Send Report
[2016-10-01 16:27] LABS: APPEARANCE,URINE CLEAR; BILIRUBIN,URINE NEGATIVE (NEGATIVE); GLUCOSE, URINE NEGATIVE (NEGATIVE); KETONES,URINE NEGATIVE (NEGATIVE); LEUKOCYTE ESTERASE,URINE SMALL (NEGATIVE); NITRITE,URINE NEGATIVE (NEGATIVE); PROTEIN,URINE NEGATIVE (NEGATIVE); URINE SPECIFIC GRAVITY 1.004; UROBILINOGEN,URINE NEGATIVE mg/dL (<2.0)
[2016-10-01 16:38] LABS: URINE BARBITURATES SCREEN NEGATIVE; URINE METHADONE SCREEN NEGATIVE; URINE OPIATES LOW NEGATIVE; URINE PHENCYCLIDINE SCREEN NEGATIVE
== END 2016-10-01 17:02 | disposition home or self-care (01) ==
LOC: LC 14:52
PROVIDERS: ATTEND Obstetrics & Gynecology
PROC: 4A1HXCZ Monitoring of Products of Conception, Cardiac Rate, External Approach (ICD-10-PCS; principal; 2016-10-01)
DX: O47.03 False labor before 37 completed weeks of gestation, third trimester (principal); Z3A.36 36 weeks gestation of pregnancy
CPT/HCPCS: 59025; 80307; 81001

== ENCOUNTER 2016-10-02 23:50 | Outpatient (CLI) | payer MEDICAID ==
[2016-10-03 00:28] LABS: APPEARANCE,URINE CLEAR; BILIRUBIN,URINE NEGATIVE (NEGATIVE); GLUCOSE, URINE NEGATIVE (NEGATIVE); KETONES,URINE NEGATIVE (NEGATIVE); LEUKOCYTE ESTERASE,URINE NEGATIVE (NEGATIVE); NITRITE,URINE NEGATIVE (NEGATIVE); PROTEIN,URINE NEGATIVE (NEGATIVE); URINE SPECIFIC GRAVITY 1.006; UROBILINOGEN,URINE NEGATIVE mg/dL (<2.0)
[2016-10-03 00:41] LABS: URINE BARBITURATES SCREEN NEGATIVE; URINE METHADONE SCREEN NEGATIVE; URINE OPIATES LOW NEGATIVE; URINE PHENCYCLIDINE SCREEN NEGATIVE
[2016-10-03] MEDS ORDERED: HYDROXYZINE PAMOATE 50 MG CAPSULE ONE (01:13)
[2016-10-03] MEDS ORDERED: HYDROXYZINE PAMOATE 50 MG CAPSULE PO ONE (01:15)
--- NOTE | 2016-10-03 04:46 | L&D Current Admission ---
Current Admit Datetime Report Generated by CPN: 10/03/2016 04:45 ADMISSION INFORMATION Chief Complaint: Contractions (10/03/2016 00:01:Tiffanie Ray RN) Chief Complaint: Contractions (10/01/2016 15:30:Alfonso Urbina RN) Chief Complaint: Contractions (09/25/2016 17:00:Alfonso Urbina RN) Chief Complaint: Contractions (09/18/2016 14:47:Olivia Iqbal RN) Chief Complaint: Contractions; Uterine Cramping; Back Pain (09/04/2016 13:01:Niesha Arreola RN)
--- NOTE | 2016-10-03 04:46 | Antepartum Discharge Summary ---
Antepartum DC Datetime Report Generated by CPN: 10/03/2016 04:45 Diet: Regular (10/03/2016 01:20:Tiffanie Ray RN) Diet: Regular (10/01/2016 17:02:Alfonso Urbina RN) Activity: Normal Activity (10/03/2016 01:20:Tiffanie Ray RN) Activity: Normal Activity (10/01/2016 17:02:Alfonso Urbina RN) Instructions Given To: pt (10/01/2016 17:02:Alfonso Urbina RN) Instructions Understood: Patient Verbalized Understanding; Support Person Verbalized Understanding (10/03/2016 01:20:Tiffanie Ray RN) Instructions Understood: Patient Verbalized Understanding; Support Person Verbalized Understanding (10/01/2016 17:02:Alfonso Urbina RN) Referrals: None (10/03/2016 01:20:Tiffanie Ray RN) Referrals: None (10/01/2016 17:02:Alfonso Urbina RN) Educational Materials- Other: Pt edcuated on labor signs, NST information given, Pt given 50 mg Vistaril PO. Pt verbalized understanding. (10/03/2016 01:20:Tiffanie Ray RN) Educational Materials- Other: kick counts labor (10/01/2016 17:02:Alfonso Urbina RN) Discharged AMA: No (10/03/2016 01:20:Tiffanei Ray RN) Discharged AMA: No (10/01/2016 17:02:Alfonso Urbina RN) Discharge Date/Time: 10/03/2016 01:04 (10/03/2016 01:20:Tiffanie Ray RN) Discharge Date/Time: 10/01/2016 17:02 (10/01/2016 17:02:Alfonso Urbina RN) Discharged To: Home (10/03/2016 01:20:Tiffanie Ray RN) Discharged To: Home (10/01/2016 17:02:Alfonso Urbina RN) Discharge Provider Name: Arnie (10/03/2016 01:20:Tiffanie Ray RN) Discharge Provider Name: Palmira BECKMAN (10/01/2016 17:02:Alfonso Urbina RN) Accompanied By: significant other (10/01/2016 17:02:Alfonso Urbina RN) Discharge Method: Ambulatory (10/03/2016 01:20:Tiffanie Ray RN) Discharge Method: Ambulatory (10/01/2016 17:02:Alfonso Urbnia RN) Condition: Stable (10/01/2016 17:02:Alfonso Urbina RN) Follow Up With: [facility] (10/03/2016 01:20:Tiffanie Ray RN) Follow Up With: [facility] (10/01/2016 17:02:Alfonso Urbina RN) Follow Up On: As Scheduled (10/03/2016 01:20:Tiffanie Ray RN) Follow Up On: As Scheduled (10/01/2016 17:02:Alfonso Urbina RN) Follow [facility] Phone Number: [facility] - (10/03/2016 01:20:Tiffanie Ray RN) Follow Up Phone Number: [facility] - (10/01/2016 17:02:Alfonso Urbina RN) Comments: 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 Understands instructions, when to return to hospital for evaluation, to keep scheduled appointments. (10/01/2016 17:02:Alfonso Urbina RN) Contractions: Contractions or cramps become more frequent than 8 in one hour or 4 in 20 minutes; Regular painful contractions every 5 minutes or less for one hour. Time your contractions from the beginning of one to the beginning of the next (10/01/2016 17:02:Alfonso Urbina RN) Pressure: Pressure in your vagina or lower abdomen that may feel like the baby is pushing down (10/01/2016 17:02:Alfonso Urbina RN) Period Like Cramps: Period-like cramps or low dull backache that may come and go (10/01/2016 17:02:Alfonso Urbina RN) Cramps/Diarrhea: Abdominal cramps that may be accompanied by diarrhea (10/01/2016 17:02:Alfonso Urbina RN) Gush of Fluid/Blood: Gush of fluid or blood from your vagina (it is normal to have spotting after vaginal exam or intercourse) (10/01/2016 17:02:Alfonso Urbina RN) Vaginal Discharge: Change in the type or amount of vaginal discharge (10/01/2016 17:02:Alfonso Urbina RN) Decreased Movement: Your baby is not moving as much as usual- 4 movements in 1 hour after drinking and resting on side (10/01/2016 17:02:Alfonso Urbina RN) Temperature: Temperature greater than 100.0(F) orally (10/01/2016 17:02:Alfonso Urbina RN) Hypertension Signs/Symptoms: Severe headache which is not relieved 30 minutes after taking Tylenol(Acetaminophen); Blurry vision or spots before your eyes; Severe heartburn or pain on the upper right side of your abdomen that is not relieved by an antacid; Increased swelling in your face, hands or feet (10/01/2016 17:02:Alfonso Urbina RN) Urinary Output: Decreased urinary output or dark colored urine (10/01/2016 17:02:Alfonso Urbina RN) N/V [address]/Crackers: Keep dry toast/crackers with you to munch on (10/01/2016 17:02:Alfonso Urbina RN) N/V Frequent Meals: Eat small frequent meals (10/01/2016 17:02:Alfonso Urbina RN) N/V Empty Stomach: Try to keep something in your stomach (don't let your stomach get empty) (10/01/2016 17:02:Alfonso Urbina RN) N/V Time Getting Up: Take your time getting up (10/01/2016 17:02:Alfonso Urbina RN) N/V Avoid Smells: Avoid smells that make you feel sick (10/01/2016 17:02:Alfonso Urbina RN) Travel Seatbelts: Wear seatbelts or safety/lap belts (10/01/2016 17:02:Alfonso Urbina RN) Travel Walk Frequently: Walk frequently, every 1-2 hours (10/01/2016 17:02:Alfonso Urbina RN) Travel Comfort Clothes: Wear clothing that does not constrict and comfortable shoes (10/01/2016 17:02:Alfonso Urbina RN) Travel Light Snack: Keep a light snack (e.g. dry crackers) with you at all times to prevent nausea (10/01/2016 17:02:Alfonso Urbina RN) Travel Hydration: Drink plenty of water, low sodium and noncaffeinated drinks (10/01/2016 17:02:Alfonso Urbina RN) Travel Medications: DO NOT take any medication that is not approved by your physician first (10/01/2016 17:02:Alfonso Urbina RN) Travel PN Records: Always keep a copy of your medical record with you just in case (10/01/2016 17:02:Alfonso Urbina RN) Edema Avoid Standing: Avoid standing for long periods, keep legs up when you can (10/01/2016 17:02:Alfonso Urbina RN) Edema Rest on Side: When resting, lie on your side (left is best) (10/01/2016 17:02:Alfonso Urbina RN) Edema Limit Sodium: Limit the amount of salty foods you eat (10/01/2016 17:02:Alfonso Urbina RN) Edema Support Hose: Try to wear support hose as much as possible (10/01/2016 17:02:Alfonso Urbina RN) Exercise Overheating: Avoid situations that would cause you to become overheated (10/01/2016 17:02:Alfonso Urbina RN) Exercise Weather: Exercise outdoors only if the weather is reasonable and not too hot (10/01/2016 17:02:Alfonso Urbina RN) Exercise Exertion: Do not over exert yourself when you exercise (10/01/2016 17:02:Alfonso Urbina RN) Exercise Hydration: Drink plenty of fluids, especially water (10/01/2016 17:02:Alfonso Urbina RN) Exercise Support: Wear good support hose, bra and shoes when exercising (10/01/2016 17:02:Alfonso Urbina RN) Varicose Veins Instructions: Do not stand for long periods of time (10/01/2016 17:02:Alfonso Urbina RN) Varicose Veins Elevate Sit: Try to keep your legs elevated when you are sitting (10/01/2016 17:02:Alfonso Urbina RN) Varicose Veins Elevate Lying: When lying down, keep your legs elevated (10/01/2016 17:02:Alfonso Urbina RN) Varicise Veins Non Binding: When wearing stockings or socks, make sure they are not too tight and bind your legs (10/01/2016 17:02:Alfonso Urbina RN) Varicose Veins Support: Wear support hose/stockings at all times (10/01/2016 17:02:Alfonso Urbina RN) Varicose Veins Periodic Move: If you have a job where you sit a lot, get up periodically and walk around (10/01/2016 17:02:Alfonso Urbina RN)
--- NOTE | 2016-10-03 04:46 | L&D General Admission ---
General Admit Datetime Report Generated by CPN: 10/03/2016 04:45 INFORMATION Para: 2 (09/04/2016 17:27:Lisbet Anderson, RN) Baby, Number in Womb: 1 (09/04/2016 17:27:Lisbet Giselosman Anderson, RN) ALLERGIES Medication Allergies: No Known Allergies (10/01/2016) (10/01/2016 15:27:QS system process) Medication Allergies: No Known Allergies (09/25/2016) (09/25/2016 16:53:QS system process) Medication Allergies: No Known Allergies (09/18/2016) (09/18/2016 15:07:QS system process) Medication Allergies: No Known Allergies (09/04/2016) (09/04/2016 12:48:QS system process) DEMOGRAPHICS Address: [address] [place] [id number] (09/04/2016 12:38:QS system process) Zipcode: [address] (09/04/2016 12:38:QS system process) Home (09/04/2016 12:38:QS system process) Work (09/04/2016 12:38:QS system process) Next of Kin Name: GIULIANA VILLEDA (09/04/2016 12:38:QS system process) Next of Kin (09/04/2016 12:38:QS system process) Next of Kin Relationship: OR (09/04/2016 12:38:QS system process) LABS Hemoglobin: 10.9 L (09/04/2016 13:50:QS system process) Hemoglobin: 11.4 L (08/20/2016 14:40:QS system process) Hematocrit: 32.5 L (09/04/2016 13:50:QS system process) Hematocrit: 33.7 L (08/20/2016 14:40:QS system process) MCV: 86 (09/04/2016 13:50:QS system process) MCV: 87 (08/20/2016 14:40:QS system process) Group Beta Strep: 1 GROUP B BETA HEMOLYTIC STREPTOCOCCUS RECOVERED (09/25/2016 17:41:QS system process)
--- NOTE | 2016-10-03 04:46 | L&D Admission Assessment ---
LD ADM ASMT Datetime Report Generated by CPN: 10/03/2016 04:45 Assessment Type: Triage (10/03/2016 00:01:Tiffanie Ray RN) Assessment Type: Admission Assessment (10/01/2016 15:30:Alfonso Urbina RN) Weight (lb): 141 (10/03/2016 00:29:QS system process) Weight (lb): 139 (10/01/2016 16:17:QS system process) Weight (kg): 64.1 (10/03/2016 00:29:QS system process) Weight (kg): 63.2 (10/01/2016 16:17:QS system process) Total Wt Gain (lb): 26 (10/03/2016 00:29:QS system process) Total Wt Gain (lb): 24 (10/01/2016 16:17:QS system process) Wt Gain (kg): 11.7 (10/03/2016 00:29:QS system process) Wt Gain (kg): 10.7 (10/01/2016 16:17:QS system process) BMI: 27.5 (10/03/2016 00:29:QS system process) BMI: 27.1 (10/01/2016 16:17:QS system process) Pain Scale: 3 (10/03/2016 00:01:Tiffanie Ray RN) Pain Scale: 1 (10/01/2016 16:52:Alfonso Urbina RN) Pain Scale: 2 (10/01/2016 16:15:Alfonso Urbina RN) Pain Scale: 2 (10/01/2016 15:34:Alfonso Urbina RN) Pain Scale: 2 (10/01/2016 15:30:Alfonso Urbina RN) Pain Presence: Intermittent (10/03/2016 00:01:Tiffanie Ray RN) Pain Presence: Intermittent (10/01/2016 16:52:Alfonso Urbina RN) Pain Presence: Intermittent (10/01/2016 16:15:Alfonso Urbina RN) Pain Presence: Intermittent (10/01/2016 15:34:Alfonso Urbina RN) Pain Type: Cramping (10/03/2016 00:01:Tiffanie Ray RN) Pain Type: Contraction (10/01/2016 16:52:Alfonso Urbina RN) Pain Type: Contraction (10/01/2016 16:15:Alfonso Urbina RN) Pain Type: Contraction (10/01/2016 15:34:Alfonso Urbina RN) Pain Location: Abdomen (10/03/2016 00:01:Tiffanie Ray RN) Pain Location: Abdomen (10/01/2016 16:52:Alfonso Urbina RN) Pain Location: Abdomen (10/01/2016 16:15:Alfonso Urbina RN) Pain Location: Abdomen (10/01/2016 15:34:Alfonso Urbina RN) Pain Goal: 1 (10/03/2016 00:01:Tiffanie Ray RN) Pain Related to Contraction: Unsure (10/03/2016 00:01:Tiffanie Ray RN) Pain Comments: Pt reports "she is not sure if shes sav, she just wants this baby to hurry up and come" (10/03/2016 00:01:Tiffanie Ray RN) Frequency (min): x1 (10/03/2016 00:45:Tiffanie Ray RN) Frequency (min): 2-3 (10/03/2016 00:29:Tiffanie Ray RN) Frequency (min): 0 (10/03/2016 00:13:Tiffanie Ray RN) Frequency (min): irregular (10/01/2016 16:53:Alfonso Urbina RN) Frequency (min): irregular (10/01/2016 16:45:Alfonso Ciara, RN) Frequency (min): irregular (10/01/2016 16:15:Alfonso Ciara, RN) Frequency (min): 3-5 (10/01/2016 15:45:Alfonso Ciara, RN) Frequency (min): 2min (10/01/2016 15:30:Alfonso Ciara, RN) Duration (sec): 70 (10/03/2016 00:45:Crystal Cory, RN) Duration (sec): 60-90 (10/03/2016 00:29:Crystal Lorain, RN) Duration (sec): 60-90 (10/01/2016 15:45:Alfonso Ciara, RN) Quality: Mild (10/03/2016 00:29:Crystal Lorain, RN) Quality: Mild (10/01/2016 16:53:Alfonso Ciara, RN) Quality: Mild (10/01/2016 16:45:Alfonso Ciara, RN) Quality: Mild (10/01/2016 16:15:Alfonso Ciara, RN) Quality: Mild (10/01/2016 15:45:Alfonso Ciara, RN) Quality: Mild (10/01/2016 15:26:Alfonso Ciara, RN) Pattern: Normal: <= 5 Contractions in 10 Minutes (10/01/2016 16:53:Alfonso Ciara, RN) Pattern: Normal: <= 5 Contractions in 10 Minutes (10/01/2016 15:45:Alfonso Ciara, RN) Resting Tone Standard: Relaxed (10/03/2016 00:45:Crystal Lorain, RN) Resting Tone Standard: Relaxed (10/03/2016 00:29:Crystal Cory, RN) Resting Tone Standard: Relaxed (10/03/2016 00:13:Crystal Lorain, RN) Resting Tone Standard: Relaxed (10/01/2016 16:53:Alfonso Ciara, RN) Resting Tone Standard: Relaxed (10/01/2016 16:45:Alfonso Ciara, RN) Resting Tone Standard: Relaxed (10/01/2016 16:15:Alfonso Ciara, RN) Resting Tone Standard: Relaxed (10/01/2016 15:45:Alfonso Urbina RN) Contraction Comments: Nurse palpating abdomen when pt complains of pressure the fetus is moving around a lot. (10/03/2016 00:13:Tiffanie Ray RN) Dilatation (cm): 1.5 (10/03/2016 00:37:Tiffanie Ray RN) Dilatation (cm): 1.5 (10/01/2016 16:52:Alfonso Urbina RN) Effacement (%): 50 (10/03/2016 00:37:Tiffanie Ray RN) Station: -2 (10/03/2016 00:37:Tiffanie Ray RN) Station: -2 (10/01/2016 16:52:Alfonso Urbina RN) Membranes Status: Intact (10/03/2016 00:01:Tiffanie Ray RN) Level of Consciousness: Fully Conscious (10/03/2016 00:01:Tiffanie Ray RN) Level of Consciousness: Fully Conscious (10/01/2016 15:30:Alfonso Urbina RN) DTR's/Clonus: DTRs 1+; No Clonus (10/03/2016 00:01:Tiffanie Ray RN) DTR's/Clonus: DTRs 2+; No Clonus (10/01/2016 15:30:Alfonso Urbina RN) Headache: Denies (10/03/2016 00:01:Tiffanie Ray RN) Headache: Denies (10/01/2016 15:30:Alfonso Urbina RN) Dizziness: No (10/03/2016 00:01:Tiffanie Ray RN) Dizziness: No (10/01/2016 15:30:Alfonso Urbina RN) Blurred Vision: No (10/03/2016 00:01:Tiffanie Ray RN) Blurred Vision: No (10/01/2016 15:30:Alfonso Urbina RN) Extremity Numbness/Tingling : None (10/03/2016 00:01:Tiffanie Ray RN) Extremity Numbness/Tingling : None (10/01/2016 15:30:Alfonso Urbina RN) Extremity Movement: Full Range of Motion (10/03/2016 00:01:Tiffanie Ray RN) Extremity Movement: Full Range of Motion (10/01/2016 15:30:Alfonso Urbina RN) Heart Rhythm: Regular (10/03/2016 00:01:Tiffanie Ray RN) Nailbeds: [place] (10/03/2016 00:01:Tiffanie Ray RN) Nailbeds: [place] (10/01/2016 15:30:Alfonso Urbina RN) Capillary Refill: Less than 3 Seconds (10/03/2016 00:01:Tiffanie Ray RN) Capillary Refill: Less than 3 Seconds (10/01/2016 15:30:Alfonso Urbina RN) Lower Extremities Edema: None (10/03/2016 00:01:Tiffanie Ray RN) Lower Extremities Edema Degree: None (10/03/2016 00:01:Tiffanie Ray RN) Upper Extremities Edema: None (10/03/2016 00:01:Tiffanie Ray RN) Upper Extremities Edema Degree: None (10/03/2016 00:01:Tiffanie Ray RN) Facial Edema: None (10/03/2016 00:01:Tiffanie Ray RN) Facial Edema: None (10/01/2016 15:30:Alfonso Urbina RN) Juliet's Sign Left Leg: Negative (10/03/2016 00:01:Tiffanie Ray RN) Juliet's Sign Left Leg: Negative (10/01/2016 15:30:Alfonso Urbina RN) Ximenas Sign Right Leg: Negative (10/03/2016 00:01:Tiffanie Ray RN) Ximenas Sign Right Leg: Negative (10/01/2016 15:30:Alfonso Urbina RN) DVT Risk Age: Age less than 41 years (10/03/2016 00:01:Tiffanie Ray RN) DVT Risk BMI: BMI<31 (10/03/2016 00:01:Tiffanie Ray RN) DVT Risk Other: None Applicable (10/03/2016 00:01:Tiffanie Ray RN) Respiratory Effort: Unlabored (10/03/2016 00:01:Tiffanie Ray RN) Respiratory Effort: Unlabored; Regular Rhythm; Equal Expansion (10/01/2016 15:30:Alfonso Urbina RN) Breath Sounds, Left: Clear and Equal (10/01/2016 15:30:Alfonso Urbina RN) Breath Sounds, Right: Clear and Equal (10/03/2016 00:01:Tiffanie Ray RN) Breath Sounds, Right: Clear and Equal (10/01/2016 15:30:Alfonso Urbina RN) Cough Productivity: None (10/03/2016 00:01:Tiffanie Ray RN) Cough Productivity: None (10/01/2016 15:30:Alfonso Urbina RN) Nausea/Vomiting: Denies (10/03/2016 00:01:Tiffanie Ray RN) Nausea/Vomiting: Denies (10/01/2016 15:30:Alfonso Urbina RN) Bowel Sounds: Normoactive (10/03/2016 00:01:Tiffanie Ray RN) Bowel Sounds: Normoactive; All Quadrants (10/01/2016 15:30:Alfonso Urbina RN) RUQ Epigastric Pain: Denies (10/03/2016 00:01:Tiffanie Ray RN) RUQ Epigastric Pain: Denies (10/01/2016 15:30:Alfonso Urbina RN) Response to Antacids: Pain Relieved (10/03/2016 00:01:Tiffanie Ray RN) Bowel Patterns: Soft, Formed Stool (10/03/2016 00:01:Tiffanie Ray RN) Hemorrhoids: None (10/03/2016 00:01:Tiffanie Ray RN) Diet Type: Regular diet (10/03/2016 00:01:Tiffanie Ray RN) Last Meal: 10/02/2016 18:00 (10/03/2016 00:01:Tiffanie Ray RN) Bladder: Nondistended (10/03/2016 00:01:Tiffanie Ray RN) Bladder: Nondistended (10/01/2016 15:30:Alfonso Urbina RN) Frequency of Urination: No (10/01/2016 15:30:Alfonso Urbina RN) Urination Burning: No (10/01/2016 15:30:Alfonso Urbina RN) CVA Tenderness: No (10/01/2016 15:30:Alfonso Urbina RN) Vaginal Bleeding: None (10/03/2016 00:01:Tiffanie Ray RN) Vaginal Bleeding: None (10/01/2016 15:30:Alfonso Urbina RN) Vaginal Discharge Amount: None (10/03/2016 00:01:Tiffanie Ray RN) Vaginal Discharge Color: N/A (10/03/2016 00:01:Tiffanie Ray RN) Vaginal Discharge Color: N/A (10/01/2016 15:30:Alfonso Urbina RN) Vaginal Discharge Odor: Odorous (10/03/2016 00:01:Tiffanie Ray RN) Vaginal Discharge Character: None (10/03/2016 00:01:Tiffanie Ray RN) Skin Color: Normal for Race (10/03/2016 00:01:Tiffanie Ray RN) Skin Color: Normal for Race (10/01/2016 15:30:Alfonso Urbina RN) Skin Temperature: Warm (10/03/2016 00:01:Tiffanie Ray RN) Skin Temperature: Warm (10/01/2016 15:30:Alfonso Urbina RN) Skin Moisture: Dry (10/03/2016 00:01:Tiffanie Ray RN) Skin Moisture: Dry (10/01/2016 15:30:Alfonso Urbina RN) Carlos Eduardo Scale Sensory Perception: No Impairment- Responds to verbal commands. Has no sensory deficit which would limit ability to feel or voice pain or discomfort (10/03/2016 00:01:Tiffanie Ray RN) Carlos Eduardo Scale Sensory Perception: No Impairment- Responds to verbal commands. Has no sensory deficit which would limit ability to feel or voice pain or discomfort (10/01/2016 15:30:Alfonso Urbina RN) Carlos Eduardo Scale Moisture: Rarely Moist- Skin is usually dry. Linen only requires changing at routine intervals (10/03/2016 00:01:Tiffanie Ray RN) Carlos Eduardo Scale Moisture: Rarely Moist- Skin is usually dry. Linen only requires changing at routine intervals (10/01/2016 15:30:Alfonso Urbina RN) Carlos Eduardo Scale Activity: Walks Frequently- Walks outside the room at least twice a day and inside room at least every 2 hours during the day. (10/03/2016 00:01:Tiffanie Ray RN) Carlos Eduardo Scale Activity: Walks Frequently- Walks outside the room at least twice a day and inside room at least every 2 hours during the day. (10/01/2016 15:30:Alfonso Urbina RN) Carlos Eduardo Scale Mobility: No Limitations- Makes major and frequent changes in position without assistance (10/03/2016 00:01:Tiffanie Ray RN) Carlos Eduardo Scale Mobility: No Limitations- Makes major and frequent changes in position without assistance (10/01/2016 15:30:Alfonso Urbina RN) Carlos Eduardo Scale Nutrition: Excellent- Eats most of every meal. Never refuses a meal. Usually eats a total of 4 or more servings of meat and dairy products. Occasionally eats between meals. Does not require supplementation (10/03/2016 00:01:Tiffanie Ray RN) Carlos Eduardo Scale Nutrition: Excellent- Eats most of every meal. Never refuses a meal. Usually eats a total of 4 or more servings of meat and dairy products. Occasionally eats between meals. Does not require supplementation (10/01/2016 15:30:Alfonso Urbina RN) Carlos Eduardo Scale Friction and Shear: No Apparent Problem- Moves in bed and in chair independently and has sufficient muscle strength to lift up completely during move. Maintains good position in bed or chair at all times (10/03/2016 00:01:Tiffanie Ray RN) Carlos Eduardo Scale Friction and Shear: No Apparent Problem- Moves in bed and in chair independently and has sufficient muscle strength to lift up completely during move. Maintains good position in bed or chair at all times (10/01/2016 15:30:Alfonso Urbina RN) Carlos Eduardo Scale Total: 23 (10/03/2016 00:01:QS system process) Carlos Eduardo Scale Total: 23 (10/01/2016 15:30:QS system process) Carlos Eduardo Scale Risk: No Risk of Pressure Ulcer Noted at this Time (10/03/2016 00:01:QS system process) Carlos Eduardo Scale Risk: No Risk of Pressure Ulcer Noted at this Time (10/01/2016 15:30:QS system process) Family Support: Significant Other supportive, at bedside frequently (10/03/2016 00:01:Tiffanie Ray RN) Emotional State: Calm/Relaxed (10/03/2016 00:01:Tiffanie Ray RN) Call Farrar Within Reach: Yes (10/03/2016 00:01:Tiffanie Ray RN) Call Farrar Within Reach: Yes (10/01/2016 15:30:Alfonso Urbina RN) Side Rails Up: Yes (10/03/2016 00:01:Tiffanie Ray RN) Side Rails Up: Yes (10/01/2016 15:30:Alfonso Urbina RN) Bed Wheels Locked: Yes (10/03/2016 00:01:Tiffanie Ray RN) Bed Wheels Locked: Yes (10/01/2016 15:30:Alfonso Urbina RN) Arm Bands Present: Yes (10/03/2016 00:01:Tiffanie Ray RN) Arm Bands Present: Yes (10/01/2016 15:30:Alfonso Urbina RN) Isolation: Ashley (10/03/2016 00:01:Tiffanie Ray RN) Fall Risk History of Falling: (0) No (10/03/2016 00:01:Tiffanie Ray RN) Fall Risk History of Falling: (0) No (10/01/2016 15:30:Alfonso Urbina RN) Fall Risk Secondary Diagnosis: (0) No (10/03/2016 00:01:Tiffanie Ray RN) Fall Risk Secondary Diagnosis: (0) No (10/01/2016 15:30:Alfonso Urbina RN) Fall Risk Ambulatory Aid: (0) None/Bedrest/Wheelchair/Nurse Assist (10/03/2016 00:01:Tiffanie Ray RN) Fall Risk Ambulatory Aid: (0) None/Bedrest/Wheelchair/Nurse Assist (10/01/2016 15:30:Alfonso Urbina RN) Fall Risk IV Therapy: (0) No (10/03/2016 00:01:Tiffanie Ray RN) Fall Risk IV Therapy: (0) No (10/01/2016 15:30:Alfonso Urbina RN) Fall Risk Gait: (0) Normal/Bedrest/Immobile (10/03/2016 00:01:Tiffanie Ray RN) Fall Risk Gait: (0) Normal/Bedrest/Immobile (10/01/2016 15:30:Alfonso Urbina RN) Fall Risk Mental Status: (0) Oriented to Own Ability (10/03/2016 00:01:Tiffanie Ray RN) Fall Risk Mental Status: (0) Oriented to Own Ability (10/01/2016 15:30:Alfonso Urbina RN) Fall Risk Score: 0 (10/03/2016 00:01:QS system process) Fall Risk Score: 0 (10/01/2016 15:30:QS system process) Fall Risk Score Definition: No Risk: No action required (10/03/2016 00:01:QS system process) Fall Risk Score Definition: No Risk: No action required (10/01/2016 15:30:QS system process) Recent Exp Communicable Disease: No (10/03/2016 00:01:Tiffanie Ray RN) Cough or Fever: No (10/03/2016 00:01:Tiffanie Ray RN) Foreign Travel Past 10 Days: No (10/03/2016 00:01:Tiffanie Ray RN) Open Wounds or Sores: No (10/03/2016 00:01:Tiffanie Ray RN) Prior Antibiotic Resistance Tx: No (10/03/2016 00:01:Tiffanie Ray RN) Cultures Obtained: Not Applicable (10/03/2016 00:01:Tiffanie Ray RN) Isolation Initiated: No (10/03/2016 00:01:Tiffanie Ray RN) Pt/Family Education: Not Applicable (10/03/2016 00:01:Tiffanie Ray RN) FHR Baseline Rate (bpm) Baby A: 135 (10/03/2016 00:45:Tiffanie Ray RN) FHR Baseline Rate (bpm) Baby A: 140 (10/03/2016 00:29:Tiffanie Ray RN) FHR Baseline Rate (bpm) Baby A: 140 (10/03/2016 00:13:Tiffanie Ray RN) FHR Baseline Rate (bpm) Baby A: 135 (10/01/2016 16:53:Alfonso Urbina RN) FHR Baseline Rate (bpm) Baby A: 135 (10/01/2016 16:45:Alfonso Urbina RN) FHR Baseline Rate (bpm) Baby A: 140 (10/01/2016 16:15:Alfonso Uribna RN) FHR Baseline Rate (bpm) Baby A: 140 (10/01/2016 15:45:Alfonso Urbina RN) Variability Baby A: Moderate 6-25 bpm (10/03/2016 00:45:Tiffanie Ray RN) Variability Baby A: Moderate 6-25 bpm (10/03/2016 00:29:Tiffanie Ray RN) Variability Baby A: Moderate 6-25 bpm (10/03/2016 00:13:Tiffanie Ray RN) Variability Baby A: Moderate 6-25 bpm (10/01/2016 16:53:Alfonso Urbina RN) Variability Baby A: Moderate 6-25 bpm (10/01/2016 16:45:Alfonso Urbina RN) Variability Baby A: Moderate 6-25 bpm (10/01/2016 16:15:Alfonso Urbina RN) Variability Baby A: Moderate 6-25 bpm (10/01/2016 15:45:Alfonso Urbina RN) Accelerations Baby A: 15X15 (10/03/2016 00:45:Tiffanie Ray RN) Accelerations Baby A: 15X15 (10/03/2016 00:29:Tiffanie Ray RN) Accelerations Baby A: 15X15 (10/03/2016 00:13:Tiffanie Ray RN) Accelerations Baby A: 15X15 (10/01/2016 16:53:Alfonso Urbina RN) Accelerations Baby A: 15X15 (10/01/2016 16:45:Alfonso Urbina RN) Accelerations Baby A: Prolonged (10/01/2016 16:15:Alfonso Urbina RN) Accelerations Baby A: 15X15 (10/01/2016 15:45:Alfonso Urbina RN) Decelerations Baby A: None (10/01/2016 16:53:Alfonso Urbina RN) Decelerations Baby A: None (10/01/2016 16:45:Alfonso Urbina RN) Decelerations Baby A: None (10/01/2016 16:15:Alfonso Urbina RN) Decelerations Baby A: None (10/01/2016 15:45:Alfonso Urbina RN) Assessment Flag: Admission Assessment (10/01/2016 15:30:QS system process)
--- NOTE | 2016-10-03 04:46 | L&D Discharge Summary ---
OB Discharge Summary Datetime Report Generated by CPN: 10/03/2016 04:45 DISCHARGE DIAGNOSIS Diagnosis/Symptoms: False Labor Diagnoses/Symptoms Other: Pt edcuated on labor signs, NST information given, Pt given 50 mg Vistaril PO. Pt verbalized understanding. Treatment/Procedures Other: Vistaril 50 mg PO Gestation: 36.2 Number of Babies in Womb: 1 Parity: 2 DIET/ACTIVITY/RESTRICTIONS Diet: Regular Activity: Normal Activity TEACHING/INSTRUCTIONS/REFERRALS Instructions Given To: pt Instructions Understood: Patient Verbalized Understanding; Support Person Verbalized Understanding Referrals: None Educational Materials- Other: Pt edcuated on labor signs, NST information given, Pt given 50 mg Vistaril PO. Pt verbalized understanding. 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 Understands instructions, when to return to hospital for evaluation, to keep scheduled appointments. GENERAL INSTR-CALL PROVIDER IF: Contractions: Contractions or cramps become more frequent than 8 in one hour or 4 in 20 minutes; Regular painful contractions every 5 minutes or less for one hour. Time your contractions from the beginning of one to the beginning of the next Pressure: Pressure in your vagina or lower abdomen that may feel like the baby is pushing down Period Like Cramps: Period-like cramps or low dull backache that may come and go Cramps/Diarrhea: Abdominal cramps that may be accompanied by diarrhea Gush of Fluid/Blood: Gush of fluid or blood from your vagina (it is normal to have spotting after vaginal exam or intercourse) Vaginal Discharge: Change in the type or amount of vaginal discharge Decreased Movement: Your baby is not moving as much as usual- 4 movements in 1 hour after drinking and resting on side Temperature: Temperature greater than 100.0(F) orally
--- NOTE | 2016-10-03 04:46 | L&D Flow Sheet ---
LD Flowsheet Datetime Report Generated by CPN: 10/03/2016 04:45 Datetime: 10/03/2016 01:21 Stage of : OB Triage (Crystal Verona, RN) Communication Comments: Pt left unit ambulatory, Pt care relinquished. (Crystal Verona, RN) Datetime: 10/03/2016 01:15 Stage of : OB Triage (Crystal Verona, RN) Communication: RN at Bedside; RN Reviewed Strip (Crystal Cory, RN) Communication Comments: Pt edcuated on labor signs, NST information given, Pt given 50 mg Vistaril PO. Pt verbalized understanding. (Tiffanie Ray RN) Datetime: 10/03/2016 01:04 Communication: Call/Page Placed to Provider (Tiffanie Ray RN) Provider Notified (Name): Dr. Gaitan (Tiffanie Ray RN) Notification Reason: Status Update; Labor Status (Tiffanie Ray RN) Communication Comments: Received orders to DC pt with 50 mg vistaril PO. Educate pt on labor signs. (Tiffanie Ray RN) Datetime: 10/03/2016 00:45 Monitor Mode: External; Palpation (Tiffanie Ray RN) Monitor Interventions for UA: Riggins Adjusted (iTffanie Ray RN) Frequency (min): x1 (Tiffanie Ray RN) Duration (sec): 70 (Tiffanie Ray RN) Resting Tone (Palpate): Relaxed (Tiffanie Ray RN) Monitor Mode: External US (Crystal Cory, RN) FHR Baseline Rate : 135 (Crystal Cory, RN) Variability: Moderate 6-25 bpm (Crystal Verona, RN) Accelerations: 15X15 (Crystal Verona, RN) Patient Position/Activity: Left Tilt; Semi-Fowlers (Crystal Verona, RN) I/O Interventions: Clear Liquids Given (Crystal Cory, RN) Datetime: 10/03/2016 00:37 Dilatation (cm): 1.5 (Crystal Verona, RN) Effacement (%): 50 (Crystal Cory, RN) Station: -2 (Crystal Cory, RN) Exam by: Jair Ray RN (Crystal Verona, RN) Cervix, Consistency: Soft (Crystal Cory, RN) Datetime: 10/03/2016 00:32 Temperature (F): 98.8 (Crystal Cory, RN) Temperature (C): 37.1 (QS system process) LaborFlag: OB Triage (QS system process) Datetime: 10/03/2016 00:29 Monitor Mode: External (Crystal Verona, RN) Frequency (min): 2-3 (Crystal Cory, RN) Quality: Mild (Crystal Cory, RN) Duration (sec): 60-90 (Crystal Verona, RN) Resting Tone (Palpate): Relaxed (Crystal Verona, RN) Monitor Mode: External US (Crystal Verona, RN) FHR Baseline Rate : 140 (Crystal Verona, RN) Variability: Moderate 6-25 bpm (Crystal Cory, RN) Accelerations: 15X15 (Crystal Verona, RN) Patient Position/Activity: Left Tilt; Semi-Fowlers (Crystal Verona, RN) Datetime: 10/03/2016 00:13 Stage of : OB Triage (Crystal Cory, RN) NBP Sys/Jewels/Mean (mmHg): 130 (QS system process) : 64 (QS system process) : 90 (QS system process) Pulse: 101 (QS system process) Monitor Mode: Palpation (Crystal Verona, RN) Frequency (min): 0 (Crystal Cory, RN) Resting Tone (Palpate): Relaxed (Tiffanie Ray RN) Contraction Comments: Nurse palpating abdomen when pt complains of pressure the fetus is moving around a lot. (Tiffanie Ray RN) Monitor Mode: External US (Tiffanie Ray RN) FHR Baseline Rate : 140 (Tiffanie Ray RN) Variability: Moderate 6-25 bpm (Tiffanie Ray RN) Accelerations: 15X15 (Tiffanie Ray RN) Patient Position/Activity: Left Tilt; Semi-Fowlers (Tiffanie Ray RN) I/O Interventions: Clear Liquids Given (Tiffanie Ray RN) LaborFlag: OB Triage (QS system process) Datetime: 10/03/2016 00:01 Pain Scale: 3 (Tiffanie Ray RN) Pain Presence: Intermittent (Tiffanie Ray RN) Pain Type: Cramping (Tiffanie Ray RN) Pain Location: Abdomen (Tiffanie Ray RN) Pain Goal: 1 (Tiffanie Ray RN) Pain Relief Measures: Comfort Measures (Tiffanie Ray RN) Pain Coping: Talking Through Contractions (Tiffanie Ray RN) Pain Assessment Comments: Pt reports "she is not sure if shes sav, she just wants this baby to hurry up and come" (Tiffanie Ray RN) Membrane Status: Intact (Tiffanie Ray RN) Vaginal Bleeding: None (Tiffanie Ray RN) Level of Consciousness: Fully Conscious (Tiffanie Ray RN) DTR's/Clonus: DTRs 1+; No Clonus (Tiffanie Ray RN) Headache: Denies (Tiffanie Ray RN) Breath Sounds, Right: Clear and Equal (Tiffanie Ray RN) Nausea/Vomiting: Denies (Tiffanie Ray RN) RUQ Epigastric Pain: Denies (Tiffanie Ray RN) LaborFlag: OB Triage (QS system process)
== END 2016-10-03 01:21 | disposition home or self-care (01) ==
LOC: LC 23:50
PROVIDERS: ATTEND Obstetrics & Gynecology
PROC: 4A1HXCZ Monitoring of Products of Conception, Cardiac Rate, External Approach (ICD-10-PCS; principal; 2016-10-02)
DX: O47.03 False labor before 37 completed weeks of gestation, third trimester (principal); Z3A.36 36 weeks gestation of pregnancy
CPT/HCPCS: 59025; 81001; 80307; J3490

== ENCOUNTER 2016-10-22 11:23 | Outpatient (CLI) | payer MEDICAID ==
--- NOTE | 2016-10-22 11:36 | Non Stress Test Report ---
Non Stress Test Datetime Report Generated by CPN: 10/22/2016 11:36 DEMOGRAPHIC Test Number: 1 EGA NST: 36.3 INDICATION Indication for Study: Ordered by Provider VITAL SIGNS Temperature - NST: 98.8 MONITORING Monitor Explained: Monitor Explained; Test Explained Time on Monitor: 10/03/2016 00:04 Time off Monitor: 10/03/2016 01:13 NST Duration: 69 NST INTERVENTIONS NST Interventions: PO Hydration Physician Notified NST: Gaitan BABY A: [id number] Movement : Present Contraction Frequency : irregular FHR Baseline : 135 Accelerations : 15X15 Decelerations : None Variability : Moderate 6-25bpm NST Review: Meets Criteria for Reactive NST NST Review and Verified By : BARRIE Granado Results: Reactive NST REPORT Report Trigger: Send Report
[2016-10-22 12:00] LABS: APPEARANCE,URINE SLIGHTLY-CLOUDY; BILIRUBIN,URINE NEGATIVE (NEGATIVE); GLUCOSE, URINE NEGATIVE (NEGATIVE); KETONES,URINE NEGATIVE (NEGATIVE); LEUKOCYTE ESTERASE,URINE LARGE (NEGATIVE); NITRITE,URINE NEGATIVE (NEGATIVE); PROTEIN,URINE NEGATIVE (NEGATIVE); URINE SPECIFIC GRAVITY 1.012; UROBILINOGEN,URINE NEGATIVE mg/dL (<2.0)
[2016-10-22 12:24] LABS: URINE BARBITURATES SCREEN NEGATIVE; URINE METHADONE SCREEN NEGATIVE; URINE OPIATES LOW NEGATIVE; URINE PHENCYCLIDINE SCREEN NEGATIVE
--- NOTE | 2016-10-23 00:28 | Non Stress Test Report ---
Non Stress Test Datetime Report Generated by CPN: 10/23/2016 00:28 DEMOGRAPHIC EGA NST: 39.1 INDICATION Indication for Study: Other MONITORING Monitor Explained: Monitor Explained; Test Explained; Patient Verbalized Understanding Time on Monitor: 10/22/2016 11:41 Time off Monitor: 10/22/2016 12:58 NST Duration: 77 NST INTERVENTIONS NST Interventions: PO Hydration; Reposition Patient BABY A: [id number] BABY A Movement : Present Contraction Frequency : 7-8 FHR Baseline : 125 Accelerations : 15X15 Decelerations : None Variability : Moderate 6-25bpm NST Review: Meets Criteria for Reactive NST NST Review and Verified By : Nik Martinez RNC NST Results: Reactive NST REPORT Report Trigger: Send Report
== END 2016-10-22 13:10 | disposition home or self-care (01) ==
LOC: LC 11:23
PROVIDERS: ATTEND Obstetrics & Gynecology
PROC: 4A1HXCZ Monitoring of Products of Conception, Cardiac Rate, External Approach (ICD-10-PCS; principal; 2016-10-22)
DX: O47.1 False labor at or after 37 completed weeks of gestation (principal); Z3A.39 39 weeks gestation of pregnancy
CPT/HCPCS: 59025; 80307; 81005

== ENCOUNTER 2016-10-23 00:29 | Outpatient (CLI) | payer MEDICAID ==
[2016-10-23 00:48] LABS: APPEARANCE,URINE CLEAR; BILIRUBIN,URINE NEGATIVE (NEGATIVE); GLUCOSE, URINE NEGATIVE (NEGATIVE); KETONES,URINE NEGATIVE (NEGATIVE); LEUKOCYTE ESTERASE,URINE NEGATIVE (NEGATIVE); NITRITE,URINE NEGATIVE (NEGATIVE); PROTEIN,URINE NEGATIVE (NEGATIVE); UROBILINOGEN,URINE NEGATIVE mg/dL (<2.0)
[2016-10-23 01:36] LABS: URINE BARBITURATES SCREEN NEGATIVE; URINE METHADONE SCREEN NEGATIVE; URINE OPIATES LOW NEGATIVE; URINE PHENCYCLIDINE SCREEN NEGATIVE
--- NOTE | 2016-10-23 04:20 | Non Stress Test Report ---
Non Stress Test Datetime Report Generated by CPN: 10/23/2016 04:20 DEMOGRAPHIC Test Number: 5 EGA NST: 39.2 INDICATION Indication for Study: Ordered by Provider MONITORING Monitor Explained: Monitor Explained; Test Explained; Patient Verbalized Understanding Time on Monitor: 10/23/2016 00:37 Time off Monitor: 10/23/2016 03:49 NST Duration: 192 NST INTERVENTIONS NST Interventions: PO Hydration; Reposition Patient Physician Notified NST: Dr. Gaitan BABY A Movement : Present Contraction Frequency : 3-6 FHR Baseline : 135 Accelerations : 15X15 Decelerations : None Variability : Moderate 6-25bpm NST Review: Meets Criteria for Reactive NST NST Review and Verified By : BARRIE Granado Results: Reactive NST REPORT Report Trigger: Send Report
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
--- NOTE | 2016-10-24 17:26 | Antepartum Discharge Summary ---
Antepartum DC Datetime Report Generated by CPN: 10/24/2016 17:25 Diet: Regular (10/23/2016 04:01:Chris Ellis RN) Activity: Normal Activity (10/23/2016 04:01:Chris Ellis RN) Instructions Given To: Patient (10/23/2016 04:01:Chris Ellis RN) Instructions Understood: Patient Verbalized Understanding; Support Person Verbalized Understanding (10/23/2016 04:01:Crhis Ellis RN) Referrals: None (10/23/2016 04:01:Chris Ellis RN) Educational Materials- Other: Kick Counts Term (10/23/2016 04:01:Chris Ellis RN) Discharged AMA: No (10/23/2016 04:01:Chris Ellis RN) Discharge Date/Time: 10/23/2016 03:49 (10/23/2016 04:01:Chris Ellis RN) Discharged To: Home (10/23/2016 04:01:Chris Ellis RN) Discharge Provider Name: Dr. Gaitan (10/23/2016 04:01:Chris Ellis RN) Accompanied By: Boyfriend (10/23/2016 04:01:Chris Ellis RN) Discharge Method: Ambulatory (10/23/2016 04:01:Chris Ellis RN) Condition: Stable (10/23/2016 04:01:Chris Ellis RN) Follow Up With: [facility] (10/23/2016 04:01:Chris Ellis RN) Follow Up On: As Scheduled (10/23/2016 04:01:Chris Ellis RN) Follow Up Phone Number: [facility] - (10/23/2016 04:01:Chris Ellis RN)
--- NOTE | 2016-10-24 17:26 | L&D Current Admission ---
Current Admit Datetime Report Generated by CPN: 10/24/2016 17:26 Chief Complaint: Contractions; Back Pain (10/23/2016 00:30:Chris Ellis RN)
--- NOTE | 2016-10-24 17:27 | L&D Flow Sheet ---
LD Flowsheet Datetime Report Generated by CPN: 10/24/2016 17:26 Datetime: 10/23/2016 03:49 Monitor Mode: External; Palpation (Chris Ellis RN) Frequency (min): 3-3.5 (Chris Ellis RN) Quality: Mild/Moderate (Chris Ellis RN) Duration (sec): 90-120 (Chris Ellis RN) Resting Tone (Palpate): Relaxed (Chris Ellis RN) Monitor Mode: External US (Chris Ellis RN) FHR Baseline Rate : 130 (Chris Ellis, RN) Variability: Moderate 6-25 bpm (Chris Ellis, RN) Accelerations: 10X10 (Chris Ellis, RN) Patient Care Comments: Pt declined orders for Nubain (Chris Ellis RN) Communication: Provider Orders Received; Call/Page Placed to Provider (Chris Ellis RN) Communication Comments: Recieved orders from Dr. Gaitan to discharge patient with the option of 10mg of Nubain upon discharge. Told patient to return with the absence of movement, ROM, bleeding like a period or regular contractions occuring q2-3 mins. (Chris Ellis RN) Datetime: 10/23/2016 03:43 Dilatation (cm): 3.0 (Chris Ellis RN) Effacement (%): 80 (Chris Ellis RN) Station: -1 (Chris Ellis RN) Exam by: BARRIE Pelayo (Chris Ellis RN) Datetime: 10/23/2016 03:30 Pain Scale: 4 (Chris Ellis RN) Pain Presence: Intermittent (Chris Ellis RN) Pain Type: Contraction (Chris Ellis RN) Pain Location: Abdomen; Back (Chris Ellis RN) Pain Goal: 1 (Chris Ellis RN) Pain Coping: Breathing Through Contractions (Chris Ellis RN) I/O Interventions: Up to BR (Chris Ellis RN) Datetime: 10/23/2016 03:29 Monitor Mode: External (Chris Ellis, RN) Frequency (min): 3-6 (Chris Ellis RN) Quality: Mild/Moderate (Chris Ellis, RN) Duration (sec): 60-120 (Chris Ellis, RN) Resting Tone (Palpate): Relaxed (Chris Ellis, RN) Monitor Mode: External US (Chris Ellis RN) FHR Baseline Rate : 135 (Chris Ellis, RN) Variability: Moderate 6-25 bpm (Chris Ellis, RN) Accelerations: 15X15 (Chris Ellis, RN) Datetime: 10/23/2016 02:39 Communication: Call/Page Placed to Provider (Chris Ellis RN) Communication Comments: Spoke with Dr. Gaitan about pts EGA, history, and pts conditon. Dr. Gaitan gave orders to keep patient for 1 more hour and then recheck. Will continue to monitor. (Chris Ellis RN) Datetime: 10/23/2016 02:35 Dilatation (cm): 3.0 (Chris Ellis RN) Effacement (%): 80 (Chris Ellis RN) Station: -1 (Floridalam Soria RN) Exam by: S. Yang (Floridalma Soria RN) Datetime: 10/23/2016 01:38 Communication Comments: Pt ordered to walk floor for one hour and to return for cervix recheck (Chris Ellis RN) Datetime: 10/23/2016 01:30 Monitor Mode: External; Palpation (Chris Ellis RN) Monitor Interventions for UA: [place] Adjusted (Chris Ellis RN) Frequency (min): 2-4 (Chris Ellis RN) Quality: Mild/Moderate (Chris Rhonda, RN) Duration (sec): 60-110 (Chris Rhonda, RN) Resting Tone (Palpate): Relaxed (Chris Rhonda, RN) Monitor Mode: External US (Chris Rhonda, RN) FHR Baseline Rate : 135 (Chris Rhonda, RN) Variability: Moderate 6-25 bpm (Chris Rhonda, RN) Accelerations: 10X10 (Chris Rhonda, RN) Datetime: 10/23/2016 01:00 Monitor Mode: External; Palpation (Chris Rhonda, RN) Monitor Interventions for UA: [place] Adjusted (Chris Rhonda, RN) Frequency (min): x1 (Chris Rhonda, RN) Quality: Mild/Moderate (Chris Rhonda, RN) Resting Tone (Palpate): Relaxed (Chris Rhonda, RN) Monitor Mode: External US (Chris Rhonda, RN) FHR Baseline Rate : 135 (Chris Rhonda, RN) Variability: Moderate 6-25 bpm (Chris Rhonda, RN) Accelerations: 15X15 (Chris Rhonda, RN) Decelerations: None (Chris Rhonda, RN) Datetime: 10/23/2016 00:57 Dilatation (cm): 3.0 (Chris Ellis RN) Effacement (%): 80 (Chris Ellis RN) Station: -2 (Chris Ellis RN) Exam by: BARRIE Pelayo (Chris Ellis RN) Datetime: 10/23/2016 00:46 NBP Sys/Jewels/Mean (mmHg): 118 (QS system process) : 78 (QS system process) : 92 (QS system process) Pulse: 115 (QS system process) Datetime: 10/23/2016 00:30 Stage of : Antepartum (Floridalma Soria RN) Pain Scale: 4 (Chris Ellis RN) Pain Presence: Intermittent (Chris Ellis RN) Pain Type: Contraction (Chris Ellis RN) Pain Location: Abdomen; Back (Chris Ellis RN) Pain Goal: 1 (Chris Ellis RN) Pain Coping: Talking Through Contractions; Breathing Through Contractions (Chris Ellis RN) Membrane Status: Intact (Chris Ellis RN) Vaginal Bleeding: None (Chris Ellis RN) Level of Consciousness: Fully Conscious (Chris Ellis RN) Headache: Generalized (Chris Ellis RN) Breath Sounds, Left: Clear and Equal (Chris Ellis RN) Breath Sounds, Right: Clear and Equal (Chris Ellis RN) Nausea/Vomiting: Present (Annotations: Had nausea earlier today around 2 pm ) (Chris Ellis RN)
--- NOTE | 2016-10-24 17:27 | Non Stress Test Report ---
Non Stress Test Datetime Report Generated by CPN: 10/24/2016 17:27 DEMOGRAPHIC Test Number: 5 INDICATION Indication for Study: Ordered by Provider MONITORING Monitor Explained: Monitor Explained; Test Explained; Patient Verbalized Understanding Time on Monitor: 10/23/2016 00:37 Time off Monitor: 10/23/2016 03:49 NST INTERVENTIONS NST Interventions: PO Hydration; Reposition Patient Physician Notified NST: Dr. Gaitan BABY A Movement : Present Contraction Frequency : 3-6 FHR Baseline : 135 Accelerations : 15X15 Decelerations : None Variability : Moderate 6-25bpm NST Review: Meets Criteria for Reactive NST NST Review and Verified By : BARRIE Granado Results: Reactive NST REPORT Report Trigger: Send Report
--- NOTE | 2016-10-24 17:28 | L&D Discharge Summary ---
OB Discharge Summary Datetime Report Generated by CPN: 10/24/2016 17:27 DISCHARGE DIAGNOSIS Diagnosis/Symptoms: False Labor Diagnoses/Symptoms Other: Pt edcuated on labor signs, NST information given, Pt given 50 mg Vistaril PO. Pt verbalized understanding. Treatment/Procedures Other: Vistaril 50 mg PO Gestation: 39.2 Number of Babies in Womb: 1 Parity: 2 DIET/ACTIVITY/RESTRICTIONS Diet: Regular Activity: Normal Activity TEACHING/INSTRUCTIONS/REFERRALS Instructions Given To: Patient Instructions Understood: Patient Verbalized Understanding; Support Person Verbalized Understanding Referrals: None Educational Materials- Other: Kick Counts Term DISCHARGE INFORMATION Discharged AMA: No Discharge Date/Time: 10/23/2016 03:49 Discharged To: Home Discharge Provider Name: Dr. Gaitan Accompanied By: Boyfriend Discharge Method: Ambulatory Condition: Stable FOLLOW UP INFORMATION Follow Up With: [facility] Follow Up On: As Scheduled Follow Up Phone Number: [facility] - Comments: Pt d/c home charge lpn agrees and pt agrees, states pain from ctx is relieved and states decrease in frequency of ctx. Understands instructions, when to return to hospital for evaluation, to keep scheduled appointments. GENERAL INSTR-CALL PROVIDER IF: Contractions: Contractions or cramps become more frequent than 8 in one hour or 4 in 20 minutes; Regular painful contractions every 5 minutes or less for one hour. Time your contractions from the beginning of one to the beginning of the next Pressure: Pressure in your vagina or lower abdomen that may feel like the baby is pushing down Period Like Cramps: Period-like cramps or low dull backache that may come and go Cramps/Diarrhea: Abdominal cramps that may be accompanied by diarrhea Gush of Fluid/Blood: Gush of fluid or blood from your vagina (it is normal to have spotting after vaginal exam or intercourse) Vaginal Discharge: Change in the type or amount of vaginal discharge Decreased Movement: Your baby is not moving as much as usual- 4 movements in 1 hour after drinking and resting on side Temperature: Temperature greater than 100.0(F) orally
== END 2016-10-23 04:01 | disposition home or self-care (01) ==
LOC: LC 00:29
PROVIDERS: ATTEND Obstetrics & Gynecology
PROC: 4A1HXCZ Monitoring of Products of Conception, Cardiac Rate, External Approach (ICD-10-PCS; principal; 2016-10-23)
DX: O47.1 False labor at or after 37 completed weeks of gestation (principal); Z3A.39 39 weeks gestation of pregnancy
CPT/HCPCS: 80307; 81005

== ENCOUNTER 2016-10-23 13:26 | Inpatient (IN) | payer MEDICAID ==
[2016-10-23] MEDS ORDERED: PENICILLIN G POTASSIUM 5,000,000 UNIT in DEXTROSE 5%-WATER 100 ML IV ONE (13:48)
[2016-10-23] MEDS ORDERED: RINGERS SOLUTION,LACTATED 1,000 ML IV PRN (13:48)
[2016-10-23] MEDS ORDERED: RINGERS SOLUTION,LACTATED 1,000 ML IV ONE (13:48)
[2016-10-23] MEDS ORDERED: PENICILLIN G-K 5 MILLION UNIT VIAL ONE (13:53)
[2016-10-23] MEDS ORDERED: LIDOCAINE 1% INJ-PF (10 MG/ML) 30 ML SDV ONE (13:53)
[2016-10-23] MEDS ORDERED: MISOPROSTOL 0.2 MG TABLET ONE (13:53)
[2016-10-23] MEDS ORDERED: OXYTOCIN/NORMAL SALINE 20 UNIT/1,000 ML RTUINJ ONE ×2 (13:53→16:14)
[2016-10-23] MEDS ORDERED: OXYTOCIN 10 UNIT/ML VIAL ONE (14:04)
[2016-10-23 14:24] LABS: ABSOLUTE BASOPHILS # (AUTO) 0.1 10^3/uL (0.0-0.2); ABSOLUTE EOSINOPHILS # (AUTO) 0.3 10^3/uL (0.0-0.6); ABSOLUTE LYMPHOCYTES (AUTO) 3.2 10^3/uL (0.5-4.7); ABSOLUTE MONOCYTES (AUTO) 1.9 10^3/uL (0.1-1.4); ABSOLUTE NEUT (AUTO) 9.3 10^3/uL (1.7-8.2); BASOPHILS % (AUTO) 0.5 % (0-2); EOSINOPHILS % (AUTO) 2.2 % (0-6); HEMATOCRIT 34.3 % (36.0-47.0); HEMOGLOBIN 11.2 g/dL (12.0-15.5); HGB HCT DIFFERENCE -0.7; LYMPHOCYTES % (AUTO) 21.6 % (13-45); MEAN CORPUSCULAR HGB CONC 32.6 g/dL (32.0-36.0); MEAN CORPUSCULAR VOLUME 83 fl (80-97); MONOCYTES % (AUTO) 12.6 % (3-13); RED BLOOD COUNT 4.14 10^6/uL (3.72-5.28); RED CELL DISTRIBUTION WIDTH 14.5 % (11.5-14.0); SEGMENTED NEUTROPHILS % (AUTO) 63.1 % (42-78); WHITE BLOOD COUNT 14.8 10^3/uL (4.0-10.5)
[2016-10-23] MEDS ORDERED: DIBUCAINE 1% OINTMENT 28 GM TP PRN (14:44)
[2016-10-23] MEDS ORDERED: PROMETHAZINE HCL 25 MG TABLET PO PRN (14:44)
[2016-10-23] MEDS ORDERED: OXYTOCIN/NORMAL SALINE 1,000 ML IV PRN (14:44)
[2016-10-23] MEDS ORDERED: ACETAMINOPHEN WITH CODEINE #3 TABLET PO PRN ×2 (14:44)
[2016-10-23] MEDS ORDERED: PROMETHAZINE HCL INJ 25 MG/1 ML VIAL IV PRN (14:44)
[2016-10-23] MEDS ORDERED: MEASLES,MUMPS&RUBELLA VACC/PF 0.5 ML VIAL SUBCUT PRN (14:44)
[2016-10-23] MEDS ORDERED: PROMETHAZINE HCL 25 MG SUPP.RECT PR PRN (14:44)
[2016-10-23] MEDS ORDERED: MISOPROSTOL 0.2 MG TABLET PR ONE (14:44)
[2016-10-23] MEDS ORDERED: GLYCERIN/WITCH HAZEL LEAF 1 EACH MED..PAD TP PRN (14:44)
[2016-10-23] MEDS ORDERED: NA PHOS,M-B/NA PHOS,DI-BA (ADULT) 133 ML ENEMA PR PRN (14:44)
[2016-10-23] MEDS ORDERED: PSEUDOEPHEDRINE HCL 30 MG TABLET PO PRN (14:44)
[2016-10-23] MEDS ORDERED: ACETAMINOPHEN 650 MG SUPP.RECT PR PRN (14:44)
[2016-10-23] MEDS ORDERED: DIPH/PERTUSS(ACELL)/TETANUS VAC/PF 0.5 ML SYR (>=10YO) IM PRN (14:44)
[2016-10-23] MEDS ORDERED: DIPHENHYDRAMINE HCL 25 MG CAPSULE PO PRN (14:44)
[2016-10-23] MEDS ORDERED: BENZOCAINE/MENTHOL AEROSOL SPRAY 56 ML TOP PRN (14:44)
[2016-10-23] MEDS ORDERED: MAGNESIUM HYDROXIDE SUSP 30 ML UDCUP PO PRN (14:44)
[2016-10-23] MEDS ORDERED: IBUPROFEN 800 MG TABLET ONE (14:55)
[2016-10-23 15:10] LABS: ARTERIAL BLOOD BASE EXCESS -2.2 mmol/L; ARTERIAL BLOOD O2 SATURATION 74.4 % (94-98)
[2016-10-23 15:11] LABS: APPEARANCE,URINE SLIGHTLY-CLOUDY; BILIRUBIN,URINE NEGATIVE (NEGATIVE); GLUCOSE, URINE NEGATIVE (NEGATIVE); KETONES,URINE 20 mg/dL (NEGATIVE); LEUKOCYTE ESTERASE,URINE TRACE (NEGATIVE); NITRITE,URINE NEGATIVE (NEGATIVE); PROTEIN,URINE NEGATIVE (NEGATIVE); URINE SPECIFIC GRAVITY 1.018; UROBILINOGEN,URINE NEGATIVE mg/dL (<2.0)
[2016-10-23 15:27] LABS: URINE BARBITURATES SCREEN NEGATIVE; URINE METHADONE SCREEN NEGATIVE; URINE OPIATES LOW NEGATIVE; URINE PHENCYCLIDINE SCREEN NEGATIVE
[2016-10-23] MEDS ORDERED: METHYLERGONOVINE MALEATE INJ/PF 0.2 MG/1 ML AMPULE ONE (15:36)
[2016-10-23] MEDS ORDERED: MISOPROSTOL 0.1 MG TABLET ONE ×2 (16:15→16:19)
[2016-10-23] MEDS ORDERED: CARBOPROST TROMETHAMINE INJ 250 MCG/1 ML AMPULE ONE (16:20)
[2016-10-23] MEDS ORDERED: LOPERAMIDE HCL 2 MG CAPSULE ONE (16:24)
[2016-10-23] MEDS ORDERED: ACETAMINOPHEN WITH CODEINE #3 TABLET ONE (16:33)
--- NOTE | 2016-10-23 16:33 | L&D Progress Notes ---
PROGRESS NOTES Datetime Report Generated by CPN: 10/23/2016 16:33 PROGRESS NOTE Comment: uterus massage, soft, Pitocin infusing, uterine massaged, Cytotec 400mcg po, Methergine 0.2mg given earlier, Dr. Downing notified, bladder drained, passed 3 chux of clots and bleeding, Hemabate 250mcg IM, Immodium 4mg given, c/o of cramping like menstrual cramps. Motrin given earlier, will give Tylenol # 3 2 tablets for uterine pain VAGINAL EXAM Dilatation: 5 Effacement: 100 Station: 0 MEMBRANES Membranes: Intact FETUS A Presentation: Vertex SIGNATURE SIGNATURE: [id number] SIGNATURE: [id number] SIGNATURE: [id number] SIGNATURE: [id number] SIGNATURE: [id number] SIGNATURE: [id number] SIGNATURE: [id number] Assignment: Tiara Downing MD Signature: with User ID: [email or web address] : with User ID: Newton
[2016-10-23] MEDS ORDERED: ONDANSETRON HCL INJ/PF 4 MG/2 ML SDV ONE (16:38)
--- NOTE | 2016-10-23 17:15 | Delivery Summary ---
Del Sum A-C Datetime Report Generated by CPN: 10/23/2016 17:15 DELIVERY PERSONNEL DELIVERY PERSONNEL: [id number] Delivery Doctor:: Yuli Smith CNM Labor and Delivery Nurse:: Julieta Castanon RNpattern checker Nurse:: Minerva Ramirez RN Student Observers:: Izabel Antonio [facility] student nurse Franny Goodman [facility] instructor Paula Camarillo/SALES ADVISORY MANAGER: Rut Kim CNA II Additional Personnel: : Graciela Dempsey RN MATERNAL INFORMATION Delivery Anesthesia: None Medications After Delivery: Pitocin Bolus-Please Comment; Pitocin Drip 20 Units/1000ml NSS; Methergine 0.2mg IM; Cytotec 600mcg Per Rectum/Vagina Meds After Delivery Comment: Cytotec 400mcg PO. Hemabate 250mcg Estimated Blood Loss (ml): 300 Maternal Complications: Precipitous Labor (<3hrs) Provider Comments: AROM, clear fluid, started pushing, viable femal from OA to PAVEL over inact perineum. cord gas and cord blood to lab, Spont delivery of grossly normal intact placenta, 3 VC, EBL = 300cc, baby placed on mothers abd, cord clamped and cut after 2 minutes, baby remains on mothers abd for bonding FFFM, cytotec 600mcg via rectum LABOR SUMMARY EDC: 10/28/2016 00:00 No. Babies in Womb: 1 Attempted: No Labor Anesthesia: None LABOR INFORMATION Reason for Induction: Not Applicable Onset of Labor: 10/23/2016 00:00 Complete Dilatation: 10/23/2016 14:02 Oxytocin: N/A Group B Beta Strep: Positive Antibiotics # of Doses: 1 Antibiotics Time of Last Dose: 1408 Name of Antibiotic Given: PCN Steroids Given: None Reason Steroids Not Administered: Not Applicable MEMBRANES Membranes Rupture Method: Artificial Rupture of Membranes: 10/23/2016 14:10 Length of Rupture (hr): 0.20 Amniotic Fluid Color: Clear Amniotic Fluid Amount: Moderate Amniotic Fluid Odor: Normal STAGES OF LABOR Stage 1 hr: 14 Stage 1 min: 2 Stage 2 hr: 0 Stage 2 min: 20 Stage 3 hr: 0 Stage 3 min: 5 Total Time in Labor hr: 14 Total Time in Labor min: 27 VAGINAL DELIVERY Episiotomy: None Laceration Extension: N/A Laceration Type: None Laceration Repair: Not Applicable Sponge Count Correct: N/A Sharps Count Correct: N/A CSECTION DELIVERY Primary Indication: N/A Secondary Indication: N/A CSection Incidence: N/A Labor: N/A Elective: N/A CSection Incision: N/A BABY A INFORMATION Delivery Date/Time: 10/23/2016 14:22 Method of Delivery: Vaginal Born in Route : No : N/A Forceps: N/A Vacuum Extraction: N/A Shoulder Dystocia : No PRESENTATION/POSITION BABY A Presentation: Cephalic Cephalic Presentation: Vertex Vertex Position: Left Occipital Anterior Breech Presentation: N/A PLACENTA INFORMATION BABY A Placenta Delivery Time : 10/23/2016 14:27 Placenta Method of Delivery: Spontaneous Placenta Status: Delivered SCORES BABY A Heart Rate 1 min: >100 bpm Resp Effort 1 min: Good Cry Reflex Irritability 1 min: Cough or Sneeze or Pulls Away Muscle Tone 1 min: Active Motion Color 1 min: Blue/Pale Resuscitation Effort 1 min: Tactile Stimulation SCORE 1 MIN: 8 Heart Rate 5 min: >100 bpm Resp Effort 5 min: Good Cry Reflex Irritability 5 min: Cough or Sneeze or Pulls Away Muscle Tone 5 min: Active Motion Color 5 min: Body [place], Extremities Blue Resuscitation Effort 5 min: Tactile Stimulation SCORE 5 MIN: 9 INFORMATION BABY A Gestational Age at Delivery: 39.2 Gestational Status: Full Term- 39- 40.6 Weeks Infant Outcome : Liveborn Condition : Stable Sex: Female IDENTIFICATION BABY A Verification Date/Time: 10/23/2016 14:51 ID Band Number: [id number] Mother's Name Verified: Yes Infant RN Verifying : D Bellavance RNC/A Castanon RNC WEIGHT/LENGTH BABY A Infant Birthweight (gm): 3175 Weight (lb): 7 Infant Weight (oz): 0 Length (in): 20.00 Length (cm): 50.80 CORD INFORMATION BABY A No. Cord Vessels: 3 Nuchal Cord : N/A Cord Blood Taken: Yes-For Eval (Mom's Blood Type - or O+) Infant Suction: None ASSESSMENT BABY A Infant Complications: Meconium Infant Complications- Other: terminal meconium Physical Findings at Delivery: Within Normal Limits Infant Respirations: Appears Normal Skin to Skin: Yes Stator Plate Washer/ALS Called : No Infant Care By: Billy Ramirez [facility] Transferred To: Remains with Mother BABY B INFORMATION : N/A
[2016-10-23] MEDS ORDERED: PENICILLIN G POTASSIUM 2,500,000 UNIT in DEXTROSE 5%-WATER 50 ML IV SCH (17:49)
[2016-10-23] MEDS ORDERED: METHYLERGONOVINE MALEATE 0.2 MG TABLET ONE (18:02)
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
--- NOTE | 2016-10-23 18:02 | L&D Current Admission ---
Current Admit Datetime Report Generated by CPN: 10/23/2016 18:00 ADMISSION INFORMATION Current Admit Date/Time: 10/23/2016 14:31 (10/23/2016 00:30:Julieta Castanon RN) Reason for Admission: Onset of Labor (10/23/2016 00:30:Julieta Castanon RN) Chief Complaint: Contractions (10/23/2016 13:50:Julieta Castanon RN) Medications During : Vitamin; Sertraline (Zoloft) (10/23/2016 13:50:Julieta Castanon RN) Meds During -Oth: antibiotics for UTI (10/23/2016 13:50:Julieta Castanon RN) EGA per Dates: 39.2 (10/23/2016 00:30:QS system process) Method of Arrival: Wheelchair (10/23/2016 00:30:Julieta Castanon RN) Reason for Induction: Not Applicable (10/23/2016 00:30:Julieta Castanon RN) Records Available: Yes (10/23/2016 00:30:Julieta Castanon RN) General Admission Information: Reviewed (10/23/2016 00:30:Julieta Castanon RN) General Admission Reviewed By: Dexter Castanon RN (10/23/2016 00:30:Julieta Castanon RN) BELONGINGS/ADVANCED DIRECTIVES Other Belongings: see consents (10/23/2016 00:30:Julieta Castanon RN) Disposition of Belongings: Kept with Patient (10/23/2016 00:30:Julieta Castanon RN) Advance Direct for Healthcare: No, and Wants No Information (10/23/2016 00:30:Julieta Castanon RN) Durable Power of Mine Laborer: No (10/23/2016 00:30:Julieta Castanon RN) Living Will: No (10/23/2016 00:30:Julieta Castanon RN) Organ Donor: No (10/23/2016 00:30:Julieta Castanon RN) Pt Rights Information Given: Yes (10/23/2016 00:30:Julieta Castanon RN) Pt Understands Pt Rights: Yes (10/23/2016 00:30:Julieta Castanon RN) LEARNING ASSESSMENT Knowledge Level: Understands L_D Process; Understands Care Activities; Had Pre-Hospital Education; Understands Diagnosis (10/23/2016 00:30:Julieta Castanon RN) Barriers to Learning: None (10/23/2016 00:30:Julieta Castanon RN) Learning Readiness: Motivated (10/23/2016 00:30:Julieta Castanon RN) Learns Best By: 1 to 1 Instruction (10/23/2016 00:30:Julieta Castanon RN) DOMESTIC VIOLANCE SCREENING Dom Viol Threatened/Hurt: No (10/23/2016 00:30:Julieta Castanon RN) Hx of Abuse/Neglect past 2yrs: No (10/23/2016 00:30:Julieta Castanon RN) Feel Unsafe Going Home: No (10/23/2016 00:30:Julieta Castanon RN) Addt'l Observ Indicating Abuse: No (10/23/2016 00:30:Julieta Castanon RN) Reason Unable to Complete Screen: N/A, Screen Completed (10/23/2016 00:30:Julieta Castanon RN) Considered Personal Harm/Suicide: No (10/23/2016 00:30:Julieta Castanon RN) NUTRITIONAL/FUNCTIONAL SCREENING Problem with Appetite >5 Days: No (10/23/2016 00:30:Julieta Castanon RN) Chew/Swallow Difficulties: No (10/23/2016 00:30:Julieta Castanon RN) Inappropriate Wt Gain/Loss: No (10/23/2016 00:30:Julieta Castanon RN) Presence Skin Breakdown/Ulcer: No (10/23/2016 00:30:Julieta Castanon RN) Special Diet: No (10/23/2016 00:30:Julieta Castanon RN) Pt Requests Party Chief Visit: No (10/23/2016 00:30:Julieta Castanon RN) Hx of Any of the Following?: N/A (10/23/2016 00:30:Julieta Castanon RN) New Diagnosis of: N/A (10/23/2016 00:30:Julieta Castanon RN) Requires Assist w/Ambulation: No (10/23/2016 00:30:Julieta Castanon RN) Uses Assist Device to Ambulate: No (10/23/2016 00:30:Julieta Castanon RN) Pt Requires Help w/ADL's: No (10/23/2016 00:30:Julieta Castanon RN)
[2016-10-23 18:34] LABS: HEMATOCRIT 27.5 % (36.0-47.0); HEMOGLOBIN 9.2 g/dL (12.0-15.5); HGB HCT DIFFERENCE 0.1; MEAN CORPUSCULAR HEMOGLOBIN 27.6 pg (27.0-33.4); MEAN CORPUSCULAR HGB CONC 33.3 g/dL (32.0-36.0); MEAN CORPUSCULAR VOLUME 83 fl (80-97); RED BLOOD COUNT 3.32 10^6/uL (3.72-5.28); RED CELL DISTRIBUTION WIDTH 14.7 % (11.5-14.0); WHITE BLOOD COUNT 28.3 10^3/uL (4.0-10.5)
[2016-10-23 18:56] LABS: BAND NEUTROPHILS % (MANUAL) 2 % (3-5); BASOPHILS % (MANUAL) 0 % (0-2); EOSINOPHILS % (MANUAL) 0 % (0-6); LYMPHOCYTES % (MANUAL) 13 % (13-45); TOTAL CELLS COUNTED 100
[2016-10-23 18:58] LABS: ANISOCYTOSIS SLIGHT
[2016-10-23 19:02] LABS: PROTHROMBIN TIME 15.9 SEC (11.4-15.4)
[2016-10-23 19:03] LABS: PARTIAL THROMBOPLASTIN TIME 31.9 SEC (23.5-35.8)
[2016-10-23] MEDS ORDERED: METHYLERGONOVINE MALEATE 0.2 MG TABLET PO ONE (20:00)
--- NOTE | 2016-10-23 20:01 | L&D Flow Sheet ---
LD Flowsheet Datetime Report Generated by CPN: 10/23/2016 20:00 Datetime: 10/23/2016 19:30 Stage of : Recovery (Manuela Paige RN) NBP Sys/Jewels/Mean (mmHg): 114 (QS system process) : 77 (QS system process) : 90 (QS system process) Pulse: 89 (QS system process) Temperature (F): 97.5 (Manuela Paige RN) Temperature (C): 36.4 (QS system process) Temperature Route: Axillary (Manuela Paige RN) Pain Scale: 0 (Manuela Paige RN) Pain Presence: None/Denies (Manuela Paige RN) Pain Type: N/A (Manuela Paige RN) Datetime: 10/23/2016 19:16 NBP Sys/Jewels/Mean (mmHg): 110 (QS system process) : 75 (QS system process) : 87 (QS system process) Pulse: 78 (QS system process) Datetime: 10/23/2016 19:00 Stage of : Recovery (Julieta Lg, RN) NBP Sys/Jewels/Mean (mmHg): 112 (QS system process) : 81 (QS system process) : 93 (QS system process) Pulse: 84 (QS system process) Datetime: 10/23/2016 18:45 NBP Sys/Jewels/Mean (mmHg): 112 (QS system process) : 79 (QS system process) : 91 (QS system process) Pulse: 88 (QS system process) Datetime: 10/23/2016 18:31 Stage of : Recovery (Julieta Castanon RN) NBP Sys/Jewels/Mean (mmHg): 110 (QS system process) : 75 (QS system process) : 82 (QS system process) Pulse: 93 (QS system process) Pain Scale: 1 (Julieta Castanon RN) Pain Presence: Intermittent (Julieta Castanon RN) Pain Type: Cramping; Ache (Julieta Castanon RN) Pain Location: Abdomen; Perineum (Julieta Castanon RN) Datetime: 10/23/2016 18:10 Stage of : Recovery (Julieta Castanon RN) Datetime: 10/23/2016 18:05 Stage of : Recovery (Julieta Castanon, RN) Datetime: 10/23/2016 18:03 Stage of : Recovery (Julieta Castanon, RN) Datetime: 10/23/2016 18:00 NBP Sys/Jewels/Mean (mmHg): 120 (QS system process) : 83 (QS system process) : 98 (QS system process) Pulse: 94 (QS system process) Datetime: 10/23/2016 17:54 Stage of : Recovery (Julieta Lg, RN) Datetime: 10/23/2016 17:46 Stage of : Recovery (Julieta Castanon RN) NBP Sys/Jewels/Mean (mmHg): 125 (QS system process) : 83 (QS system process) : 100 (QS system process) Pulse: 88 (QS system process) Datetime: 10/23/2016 17:30 Stage of : Recovery (Julieta Castanon RN) NBP Sys/Jewels/Mean (mmHg): 112 (QS system process) : 74 (QS system process) : 88 (QS system process) Pulse: 96 (QS system process) Datetime: 10/23/2016 17:15 NBP Sys/Jewels/Mean (mmHg): 113 (QS system process) : 74 (QS system process) : 89 (QS system process) Pulse: 90 (QS system process) Datetime: 10/23/2016 17:00 Stage of : Recovery (Julieta Castanon, RN) NBP Sys/Jewels/Mean (mmHg): 118 (QS system process) : 78 (QS system process) : 93 (QS system process) Pulse: 96 (QS system process) Datetime: 10/23/2016 16:46 NBP Sys/Jewels/Mean (mmHg): 118 (QS system process) : 72 (QS system process) : 90 (QS system process) Pulse: 99 (QS system process) Datetime: 10/23/2016 16:45 Stage of : Recovery (Julieta Castanon, RN) Datetime: 10/23/2016 16:42 Stage of : Recovery (Julieta Castanon, RN) NBP Sys/Jewels/Mean (mmHg): 127 (QS system process) : 82 (QS system process) : 95 (QS system process) Pulse: 92 (QS system process) Datetime: 10/23/2016 16:40 Stage of : Recovery (Julieta Castanon, RN) Datetime: 10/23/2016 16:31 Stage of : Recovery (Julieta Castanon RN) NBP Sys/Jewels/Mean (mmHg): 112 (QS system process) : 73 (QS system process) : 87 (QS system process) Pulse: 98 (QS system process) Datetime: 10/23/2016 16:25 Stage of : Recovery (Julieta Castanon RN) NBP Sys/Jewels/Mean (mmHg): 113 (QS system process) : 73 (QS system process) : 88 (QS system process) Pulse: 86 (QS system process) Datetime: 10/23/2016 16:21 Stage of : Recovery (Julieta Castanon, RN) Datetime: 10/23/2016 16:19 NBP Sys/Jewels/Mean (mmHg): 113 (QS system process) : 60 (QS system process) : 79 (QS system process) Pulse: 70 (QS system process) Datetime: 10/23/2016 16:15 Stage of : Recovery (Julieta Castanon, RN) Datetime: 10/23/2016 16:14 NBP Sys/Jewels/Mean (mmHg): 78 (QS system process) : 52 (QS system process) : 60 (QS system process) Pulse: 89 (QS system process) Datetime: 10/23/2016 16:10 Stage of : Recovery (Julietalouie Castanon, RN) Datetime: 10/23/2016 16:07 Stage of : Recovery (Julieta Lg, RN) Datetime: 10/23/2016 16:00 Stage of : Recovery (Julieta Lg, RN) NBP Sys/Jewels/Mean (mmHg): 118 (QS system process) : 80 (QS system process) : 95 (QS system process) Pulse: 92 (QS system process) Datetime: 10/23/2016 15:45 Stage of : Recovery (Juileta Lg RN) NBP Sys/Jewels/Mean (mmHg): 124 (QS system process) : 86 (QS system process) : 100 (QS system process) Pulse: 94 (QS system process) Datetime: 10/23/2016 15:39 Stage of : Recovery (Julieta Lg, RN) Datetime: 10/23/2016 15:35 Stage of : Recovery (Julieta Castanon, RN) Datetime: 10/23/2016 15:34 NBP Sys/Jewels/Mean (mmHg): 122 (QS system process) : 84 (QS system process) : 99 (QS system process) Pulse: 95 (QS system process) Datetime: 10/23/2016 15:30 Stage of : Recovery (Julieta Castanon, RN) NBP Sys/Jewels/Mean (mmHg): 123 (QS system process) : 82 (QS system process) : 97 (QS system process) Pulse: 83 (QS system process) Datetime: 10/23/2016 15:16 NBP Sys/Jewels/Mean (mmHg): 126 (QS system process) : 85 (QS system process) : 100 (QS system process) Pulse: 94 (QS system process) Datetime: 10/23/2016 15:15 Stage of : Recovery (Julieta Castanon, RN) Datetime: 10/23/2016 15:01 Stage of : Recovery (Julieta Castanon, RN) Datetime: 10/23/2016 15:00 NBP Sys/Jewels/Mean (mmHg): 129 (QS system process) : 95 (QS system process) : 108 (QS system process) Pulse: 95 (QS system process) Datetime: 10/23/2016 14:45 Stage of : Recovery (Julieta Castanon RN) Datetime: 10/23/2016 14:31 Stage of : Recovery (Julieta Castanon RN) NBP Sys/Jewels/Mean (mmHg): 138 (QS system process) : 83 (QS system process) : 104 (QS system process) Pulse: 100 (QS system process) Temperature (F): 99.3 (Julieta Castanon RN) Temperature (C): 37.4 (QS system process) Pain Scale: 5 (Julieta Castanon RN) Pain Presence: Constant (Julieta Castanon RN) Pain Type: Burning; Cramping; Ache (Julieta Castanon RN) Pain Location: Perineum (Julieta Castanon RN) Datetime: 10/23/2016 14:27 Stage of : Recovery (Julieta Castanon, RN) Datetime: 10/23/2016 14:15 Monitor Mode: External; Palpation (Julieta Castanon RN) Frequency (min): 1-3 (Julieta Castanon RN) Quality: Moderate (Julieta Castanon RN) Duration (sec): 40-80 (Julieta Castanon RN) Duration Criteria: Less than Two 120 Second Contractions (Julieta Castanon, RN) Pattern: Normal: <= 5 Contractions in 10 Minutes (Julieta Castanon RN) Resting Tone (Palpate): Relaxed (Julieta Castanon RN) Monitor Mode: External US (Julieta Castanon RN) FHR Baseline Rate : 135 (Julieta Castanon, RN) Variability: Moderate 6-25 bpm (Julieta Castanon, RN) Accelerations: 15X15 (Julieta Castanon, RN) Decelerations: None (Julieta Castanon RN) Datetime: 10/23/2016 14:10 Membrane Status: Ruptured (Julieta Castanon RN) Membranes Rupture Method: Artificial (Julieta Castanon RN) Amniotic Fluid Color: Clear (Julieta Castanon RN) Amniotic Fluid Amount: Moderate (Julieta Castanon RN) Amniotic Fluid Odor: Normal (Julieta Castanon RN) Datetime: 10/23/2016 14:08 Antibiotics: Penicillin IV (Units) @ 5 million (Julieta Castanon RN) IV/Blood Work: IV Started; IV Bolus Started (Julieta Castanon RN) Datetime: 10/23/2016 14:03 Pushing: Coached on Pushing; Urge to Push (Julieta Castanon RN) Pushing Position: Pushing with Contractions (Julieta Castanon RN) Pushing Progress: Descent with Pushing (Julieta Castanon, RN) Preparation for Delivery: Setup for Delivery (Julieta Castanon, RN) Datetime: 10/23/2016 14:02 Dilatation (cm): 10.0 (Julieta Castanon, RN) Effacement (%): 100 (Julieta Castanon, RN) Station: 2 (Julieta Castanon RN) Exam by: J Smith CNM (Julieta Castanon, RN) Datetime: 10/23/2016 14:00 Communication Comments: J Smith CNM at bedside. Provider and RN to remain at bedside continuously assessing FHTs (Julieta Castanon, RN) Datetime: 10/23/2016 13:54 Comments: pt sitting straight up in bed (Julieta Castanon RN) Datetime: 10/23/2016 13:50 Frequency (min): pt states 2 minutes apart (Julieta Castanon RN) Pain Scale: 5 (Julieta Castanon RN) Pain Presence: Intermittent (Julieta Castanno RN) Pain Type: Contraction (Julieta Castanon RN) Pain Location: Abdomen (Julieta Castanon RN) Vaginal Bleeding: None (Julieta Castanon RN) Level of Consciousness: Fully Conscious (Julieta Castanon RN) DTR's/Clonus: DTRs 2+; No Clonus (Julieta Castanon RN) Headache: Denies (Julieta Castanon RN) Breath Sounds, Left: Clear and Equal (Julieta Castanon RN) Breath Sounds, Right: Clear and Equal (Julieta Castanon RN) Nausea/Vomiting: Denies (Julieta Castanon RN) RUQ Epigastric Pain: Denies (Julieta Castanon RN) Instructional Method: Verbal; Patient Instructed; Family/Support Person Instructed; Verbalized Understanding (Julieta Castanon RN) Plan of Care: Plan of Care Discussed; Vaginal Delivery (Julieta Castanon RN) Unit Routine: Bard to Room; Call F[place]ar; Bed; Handwashing; Monitoring; Bathroom Privileges (Julieta Csatanon RN) LaborFlag: Antepartum (QS system process) Datetime: 10/23/2016 13:49 Monitor Interventions for UA: [place] Adjusted (Julieta Castanon, RN) Datetime: 10/23/2016 13:44 Dilatation (cm): 5.0 (Julieta Castanon RN) Effacement (%): 100 (Julieta Castanon RN) Station: -1 (Julieta Castanon RN) Exam by: Dexter Castanon RN (Julieta Castanon RN) Membrane Status: Bulging (Julieta Castanon RN) Datetime: 10/23/2016 13:42 Patient Position/Activity: Left Lateral (Julieta Castanon RN) I/O Interventions: Clear Liquids Given (Julieta Castanon RN) Datetime: 10/23/2016 03:30 LaborFlag: Antepartum (QS system process) Datetime: 10/23/2016 00:46 LaborFlag: Antepartum (QS system process) Datetime: 10/23/2016 00:30 LaborFlag: Antepartum (QS system process) Datetime: 10/22/2016 12:56 LaborFlag: OB Triage (QS system process) Datetime: 10/22/2016 11:48 LaborFlag: OB Triage (QS system process) Datetime: 10/22/2016 11:44 Temperature (C): 36.6 (QS system process) LaborFlag: OB Triage (QS system process) Datetime: 10/03/2016 00:32 Temperature (C): 37.1 (QS system process) LaborFlag: OB Triage (QS system process) Datetime: 10/03/2016 00:13 LaborFlag: OB Triage (QS system process) Datetime: 10/03/2016 00:01 LaborFlag: OB Triage (QS system process) Datetime: 10/01/2016 16:52 LaborFlag: OB Triage (QS system process) Datetime: 10/01/2016 16:45 LaborFlag: OB Triage (QS system process) Datetime: 10/01/2016 16:27 LaborFlag: OB Triage (QS system process) Datetime: 10/01/2016 16:15 LaborFlag: OB Triage (QS system process) Datetime: 10/01/2016 15:34 LaborFlag: OB Triage (QS system process) Datetime: 10/01/2016 15:30 LaborFlag: OB Triage (QS system process) Datetime: 10/01/2016 15:24 LaborFlag: OB Triage (QS system process) Datetime: 09/25/2016 22:11 LaborFlag: OB Triage (QS system process) Datetime: 09/25/2016 21:56 LaborFlag: OB Triage (QS system process) Datetime: 09/25/2016 21:41 LaborFlag: OB Triage (QS system process) Datetime: 09/25/2016 21:40 Temperature (C): 36.6 (QS system process) LaborFlag: OB Triage (QS system process) Datetime: 09/25/2016 21:26 LaborFlag: OB Triage (QS system process) Datetime: 09/25/2016 21:11 LaborFlag: OB Triage (QS system process) Datetime: 09/25/2016 20:56 LaborFlag: OB Triage (QS system process) Datetime: 09/25/2016 20:42 LaborFlag: OB Triage (QS system process) Datetime: 09/25/2016 20:28 LaborFlag: OB Triage (QS system process) Datetime: 09/25/2016 20:12 LaborFlag: OB Triage (QS system process) Datetime: 09/25/2016 19:56 LaborFlag: OB Triage (QS system process) Datetime: 09/25/2016 19:41 LaborFlag: OB Triage (QS system process) Datetime: 09/25/2016 19:26 LaborFlag: OB Triage (QS system process) Datetime: 09/25/2016 19:12 LaborFlag: OB Triage (QS system process) Datetime: 09/25/2016 18:56 LaborFlag: OB Triage (QS system process) Datetime: 09/25/2016 18:42 LaborFlag: OB Triage (QS system process) Datetime: 09/25/2016 18:30 LaborFlag: OB Triage (QS system process) Datetime: 09/25/2016 18:27 LaborFlag: OB Triage (QS system process) Datetime: 09/25/2016 18:14 LaborFlag: OB Triage (QS system process) Datetime: 09/25/2016 17:59 LaborFlag: OB Triage (QS system process) Datetime: 09/25/2016 17:58 LaborFlag: OB Triage (QS system process) Datetime: 09/25/2016 17:42 LaborFlag: OB Triage (QS system process) Datetime: 09/25/2016 17:30 LaborFlag: OB Triage (QS system process) Datetime: 09/25/2016 17:26 LaborFlag: OB Triage (QS system process) Datetime: 09/25/2016 17:03 Temperature (C): 36.5 (QS system process) LaborFlag: OB Triage (QS system process) Datetime: 09/25/2016 16:56 LaborFlag: OB Triage (QS system process) Datetime: 09/18/2016 15:06 LaborFlag: OB Triage (QS system process) Datetime: 09/18/2016 14:36 Temperature (C): 36.4 (QS system process) LaborFlag: OB Triage (QS system process) Datetime: 09/04/2016 17:11 Temperature (C): 36.8 (QS system process) LaborFlag: OB Triage (QS system process) Datetime: 09/04/2016 16:58 LaborFlag: OB Triage (QS system process) Datetime: 09/04/2016 16:45 LaborFlag: OB Triage (QS system process) Datetime: 09/04/2016 16:29 LaborFlag: OB Triage (QS system process) Datetime: 09/04/2016 14:59 LaborFlag: OB Triage (QS system process) Datetime: 09/04/2016 14:31 LaborFlag: OB Triage (QS system process) Datetime: 09/04/2016 14:29 LaborFlag: OB Triage (QS system process) Datetime: 09/04/2016 13:59 LaborFlag: OB Triage (QS system process) Datetime: 09/04/2016 13:55 LaborFlag: OB Triage (QS system process) Datetime: 09/04/2016 13:28 LaborFlag: Antepartum (QS system process) Datetime: 09/04/2016 13:01 LaborFlag: Antepartum (QS system process) Datetime: 09/04/2016 12:58 LaborFlag: Antepartum (QS system process) Datetime: 07/08/2016 02:02 Temperature (C): 36.7 (QS system process) LaborFlag: Antepartum (QS system process) Datetime: 07/08/2016 02:00 LaborFlag: Antepartum (QS system process) Datetime: 07/08/2016 01:47 Membranes Ruptured Date/Time: 10/23/2016 14:10 (Julieta Castanon RN)
[2016-10-23] MEDS: DOCUSATE SODIUM 100 MG CAPSULE PO SCH (20:30)
[2016-10-23] MEDS: FERROUS SULFATE 325 MG TABLET PO SCH (20:30)
[2016-10-23] MEDS: IBUPROFEN 800 MG TABLET PO SCH (21:37)
[2016-10-23] MEDS: FAMOTIDINE 20 MG TABLET PO SCH (21:39)
[2016-10-23] MEDS: METHYLERGONOVINE MALEATE 0.2 MG TABLET PO SCH (23:05)
[2016-10-24] MEDS: METHYLERGONOVINE MALEATE 0.2 MG TABLET PO SCH ×2 (05:37→11:50)
[2016-10-24] MEDS: IBUPROFEN 800 MG TABLET PO SCH ×3 (05:38→21:09)
[2016-10-24 07:52] LABS: HEMATOCRIT 22.5 % (36.0-47.0); HGB HCT DIFFERENCE 0.3; MEAN CORPUSCULAR HEMOGLOBIN 27.7 pg (27.0-33.4); MEAN CORPUSCULAR HGB CONC 33.8 g/dL (32.0-36.0); MEAN CORPUSCULAR VOLUME 82 fl (80-97); RED BLOOD COUNT 2.73 10^6/uL (3.72-5.28); RED CELL DISTRIBUTION WIDTH 14.5 % (11.5-14.0); WHITE BLOOD COUNT 17.2 10^3/uL (4.0-10.5)
[2016-10-24 08:00] LABS: HEMOGLOBIN 7.6 g/dL (12.0-15.5)
[2016-10-24] MEDS ORDERED: SENNOSIDES/DOCUSATE 8.6-50 MG 1 EACH TABLET PO SCH (10:00)
[2016-10-24] MEDS ORDERED: PRENATAL VITAMIN W-O CA NO5/FE FUMARATE/FA CAPSULE PO SCH (10:00)
[2016-10-24] MEDS: FERROUS SULFATE 325 MG TABLET PO SCH ×2 (10:08→18:42)
[2016-10-24] MEDS: DOCUSATE SODIUM 100 MG CAPSULE PO SCH ×2 (10:08→18:42)
[2016-10-24] MEDS: FAMOTIDINE 20 MG TABLET PO SCH ×2 (10:09→21:10)
--- NOTE | 2016-10-24 11:00 | PDOC PROGRESS REPORT ---
Subjective-OB Subjective: Post Delivery Day: 21 year old. Denies any needs at this time. Pt doing well, no complaints. She denies symptoms of anemia. She reports light bleeding, voiding well, and regular diet. Physical Exam (OB) Vital Signs: Temp Pulse Resp BP Pulse Ox 98.3 F 96 20 110/49 L 97 10/24/16 09:14 10/24/16 09:14 10/24/16 09:14 10/24/16 09:14 10/24/16 09:14 Intake & Output 10/23/16 10/24/16 10/25/16 06:59 06:59 06:59 Weight 62.5 kg - Lochia Lochia Amount: Small 10-25 ml Lochia Color: Rubra/Red - Abdomen Description: Soft, Round Hernia Present: No Fundal Description: Firm, Midline Fundal Height: u/u - u/2 Objective-Diagnostic Laboratory: 10/24/16 07:25 10/23/16 10/23/16 10/23/16 13:35 14:09 14:09 WBC 14.8 H RBC 4.14 Hgb 11.2 L Hct 34.3 L MCV 83 MCH 27.0 MCHC 32.6 RDW 14.5 H Plt Count 291 Seg Neutrophils % 63.1 Lymphocytes % 21.6 Monocytes % 12.6 Eosinophils % 2.2 Basophils % 0.5 Absolute Neutrophils 9.3 H Absolute Lymphocytes 3.2 Absolute Monocytes 1.9 H Absolute Eosinophils 0.3 Absolute Basophils 0.1 Carbonic Acid HCO3/H2CO3 Ratio ABG pH ABG pCO2 ABG pO2 ABG HCO3 ABG O2 Saturation ABG Base Excess FiO2 Urine Color YELLOW Urine Appearance SLIGHTLY-CLOUDY Urine pH 6.0 Ur Specific [place] 1.018 Urine Protein NEGATIVE Urine Glucose (UA) NEGATIVE Urine Ketones 20 H Urine Blood NEGATIVE Urine Nitrite NEGATIVE Ur Leukocyte Esterase TRACE H Blood Type O POSITIVE Antibody Screen NEGATIVE 10/23/16 10/23/16 10/24/16 14:22 18:21 07:25 WBC 28.3 H 17.2 H RBC 3.32 L 2.73 L Hgb 9.2 L 7.6 L Hct 27.5 L 22.5 L MCV 83 82 MCH 27.6 27.7 MCHC 33.3 33.8 RDW 14.7 H 14.5 H Plt Count 266 234 Seg Neutrophils % Not Reportable Lymphocytes % Not Reportable Monocytes % Not Reportable Eosinophils % Not Reportable Basophils % Not Reportable Absolute Neutrophils Not Reportable Absolute Lymphocytes Not Reportable Absolute Monocytes Not Reportable Absolute Eosinophils Not Reportable Absolute Basophils Not Reportable Carbonic Acid 1.13 HCO3/H2CO3 Ratio 19:1 ABG pH 7.39 ABG pCO2 37.6 ABG pO2 39.6 L* ABG HCO3 22.4 ABG O2 Saturation 74.4 L ABG Base Excess -2.2 FiO2 CORD BLOOD Urine Color Urine Appearance Urine pH Ur Specific [place] Urine Protein Urine Glucose (UA) Urine Ketones Urine Blood Urine Nitrite Ur Leukocyte Esterase Blood Type Antibody Screen Assessment and Plan(PN) - Assessment and Plan (1) Anemia due to acute blood loss Is this a current diagnosis for this admission?: Yes (2) Normal vaginal delivery Is this a current diagnosis for this admission?: Yes - Time Spent with Patient Time with patient: Less than 15 minutes Medications reviewed and adjusted accordingly: Yes - Disposition Anticipated Discharge: Home Within: within 24 hours
--- NOTE | 2016-10-24 17:36 | L&D Care Plan ---
LD CARE PLANS Datetime Report Generated by CPN: 10/24/2016 17:35 Datetime: 10/23/2016 15:07 State: Risk For (Julieta Castanon RN) Related To: Labor and Delivery Process; Treatment and Procedures; Post (Julieta Castanon RN) Goal(s): Patients Pain will be Assessed and Managed; Patient will Verbalize Adequate Relief of Pain or the Ability to [place] with Current Pain (Julieta Castanon RN) Interventions: Assess Pain Severity on Scale of 0 (None) to 5 (Severe); Assess Type, Location and Intensity of Pain Each Time Client Reports Discomfort and Notify Provider if Unusal Pain Develops; Encourage Proper Breathing and Relaxation Techniques; Offer Alternatives Such as Repositioning, Calm Environment, Massages, Diversional Activities, Ice Pack, Splinting, and Ambulation; Administer Analgesics as Ordered; Assist with Epidural Placement as Appropriate; Evaluate Therapeutic Effectiveness of Medication and Treatments (Julieta Castanon RN) Outcome: Patient will Report Absence or Relief of Pain Consistent with Established Pain Goal (Julieta Castanon RN) Status: Ongoing (Julieta Castanon RN) Outcome: Patient will have a Decrease in Signs and Symptoms of Discomfort (Julieta Castanon RN) Status: Ongoing (Julieta Castanon RN) Outcome: Pain will be Controlled During Procedures (Julieta Castanon RN) Status: Ongoing (Julieta Csatanon RN) State: Risk For (Julieta Castanon RN) Related To: Labor and Delivery Process; Medical Interventions; Significant Life Event (Julieta Castanon RN) Goal(s): Patient will have Decreased Anxiety and be able to Function at Acceptable Levels (Julieta Castanon RN) Interventions: Assess Verbal and Nonverbal Behavioral Indicators of Anxiety; Assist Patient to Identify and Verbalize Symptoms of Anxiety; Identify and Demonstrate Techniques to Control Anxiety; Assist Patient with Coping Mechanisms to Manage Anxiety; Provide Theraputic Touch for the Patient; Explain to Patient, Using a Calm Reassuring Approach and Nonmedical Terms, All Activities, Procedures, and Concerns; Instruct Patient and Family about Post Discharge Care, Limitations, Symptoms to Report and Resources Available (Julieta Castanon RN) Outcome: Patient will Identify, Verbalize and Demonstrate Techniques to Control Anxiety (Julieta Castanon RN) Status: Ongoing (Julieta Castanon RN) Outcome: Patient's Posture, Facial Expressions, Gestures and Activity Level will Reflect Decreased Anxiety (Julieta Castanon RN) Status: Ongoing (Julieta Castanon RN) Outcome: Patient will Verbalize a Sense of Control and/or Acceptance of the Situation (Julieta Castanon RN) Status: Ongoing (Julieta Castanon RN) Outcome: Patient will Identify and Utilize Support Person (Julieta Castanon RN) Status: Ongoing (Julieta Castanon RN) State: Risk For (Julieta Castanon RN) Related To: Labor and Delivery Process; Treatment and Procedures (Julieta Castanon RN) Goal(s): Patient will Accurately Verbalize Understanding of Plan of Care and Treatment; Patient and Family will Accurately Verbalize Understanding of the Disease Process (Julieta Castanon RN) Interventions: Assess Motivation and Willingness of Patient/Family to Learn; Assess Preferred Learning Mode: One to One Instruction, Reading, Videos, Group Discussion or Demonstration; Assess Barriers to Learning: Pain, Emotional State, Language Barrier, Cognitive Impairment, Visual or Hearing Deficits; Assess Patient and Family Knowledge of Disease Process, Medications and Treatment; Discuss Therapy and/or Treatment Options, Describe Rationale Behind Management, Therapy and Treatment Recommendations; Instruct Patient and Family on Signs and Symptoms to Report; Instruct Patient and Family on Medication Effects and Side Effects; Provide Appropriate and Timely Education Using Multiple Techniques; Provide Patient and Family with Support Group Information and Resources; Give Clear and Thorough Explanations and Demonstrations (Julieta Castanon RN) Outcome: Patient and Family will Verbalize Understanding of Condition, Treatment and Signs and Symptoms to Report (Julieta Castanon RN) Status: Ongoing (Julieta Castanon RN) Outcome: Patient will Identify Perceived Learning Needs and Express Motivation to Learn (Julieta Castanon RN) Status: Ongoing (Julieta Castanon, RN) Outcome: Patient will Verbalize Understanding of Desired Content, and/or Performs Desired Skill Prior to Discharge (Julieta Castanon RN) Status: Ongoing (Julieta Castanon RN) State: Risk For (Julieta Castanon RN) Related To: Invasive Procedures (Julieta Castanon RN) Goal(s): The Patient will be Free of Infection, Vital Signs Stable and Lab Work within Normal Parameters (Julieta Castanon RN) Interventions: Instruct and Reinforce Proper Handwashing, Hygiene, and Care Techniques to Patient and Family; Monitor Vital Signs; Monitor Patient for the Following Signs of Infection: Fever, Abdominal Tenderness, Unusual Discharge; Monitor Aminiotic Fluid, Urine and Lochia for Color and Odor; Observe Wounds, Incisions and Invasive Line Sites for Redness, Drainage and Edema; Assess IV Sites per Hospital Policy; Monitor Lab and Test Results and Notify Provider of Abnormal Findings; Assess Nutritional Status and Promote Good Nutrition (Julieta Castanon RN) Outcome: Patient will Remain Free of Infection (Julieta Castanon RN) Status: Ongoing (Julieta Castanon RN) Outcome: Infection will be Recognized Early to Allow for Prompt Treatment (Julieta Castanon RN) Status: Ongoing (Julieta Castanon RN) Outcome: Patient will have Vital Signs Within Expected Range (Julieta Castanon RN) Status: Ongoing (Julieta Castanon RN) State: Not Applicable (Julieta Castanon RN) State: Risk For (Julieta Castanon RN) Related To: Labor and Delivery Process (Julieta Castanon RN) Goal(s): Patient will Remain Free from Injury (Julieta Castanon RN) Interventions: Monitoring as per Hospital Protocol; Assess Neurological Status; Perform Risk Assessment of Patients with Induction and ; Perform Fall Risk Assessment and Prevention per Hospital Protocol; Perform DVT Risk Assessment and Prophylaxis per Hospital Protocol; Ensure that Oxygen, Suction, and Resuscitation Medications and Equipment are Readily Available; Confirm Patient ID Prior to Procedure(s) and Medication Administration per Hospital Policy (Julieta Castanon RN) Outcome: Successful Fall Risk Prevention (Julieta Castanon RN) Status: Ongoing (Julieta Castanon RN) Outcome: Patient will Deliver without Adverse Sequela (Julieta Castanon RN) Status: Ongoing (Julieta Castanon RN) Outcome: Patient's Neurological Status will Remain Stable (Julieta Castanon RN) Status: Ongoing (Julieta Castanon RN) State: Risk For (Julieta Castanon RN) Related To: Vaginal Delivery; Invasive Procedures (Julieta Castanon RN) Goal(s): Patient will Maintain Optimal Skin Integrity, Free of Breakdown, Injury or Infection (Julieta Castanon RN) Interventions: Complete Screening for Pressure Ulcer Risk and Initiate Protocol per Hospital Policy; Monitor Site of Skin Impairment for Color Changes, Redness, Swelling, Warmth, Pain or Other Signs of Infection; Encourage and Assist with Position Changes; Monitor Patient's Mobility Status; Provide Adequate Nutrition and Fluids; Teach Patient Appropriate Hygienic Care; Teach Patient/Family Skin Care Management (Julieta Castanon RN) Outcome: Patient will not have Evidence of Injury Such as Skin Breakdown, Scrapes, Cuts, or Bruising (Julieta Castanon RN) Status: Ongoing (Julieta Castanon RN) Outcome: Patient will Report Any Altered Sensation or Pain at Site of Skin Impairment (Julieta Castanon RN) Status: Ongoing (Julieta Castanon, RN) Outcome: Patients Incisions and Wounds will be without Signs or Symptoms of Infection (Julieta Castanon RN) Status: Ongoing (Julieta Castanon, RN) Outcome: Patient will Demonstrate Understanding of Plan to Heal Skin and Prevent Reinjury and Verbalize Risk Factors (Julieta Castanon RN) Status: Ongoing (Julieta Castanon RN) State: Not Applicable (Julieta Castanon RN) State: Not Applicable (Julieta Castanon, RN) State: Not Applicable (Julieta Castanon, RN)
--- NOTE | 2016-10-24 17:37 | Admission Physical ---
Datetime Report Generated by CPN: 10/24/2016 17:37 Hx Assessment: The History has been Reviewed and is Current Chief Complaint: Uterine Contractions Indication for Induction: Not Applicable Admit Plan: Admit to Unit; Initiate Labor Protocol Medication Allergies: kenton (10/23/2016) General: Normal HEENT: Normal Neurologic: Normal Thyroid: Normal Heart: Normal Lungs: Normal Breast: Deferred Back: Normal Abdomen: Normal Genitourinary Exam: Normal Extremities: Normal DTRs: Normal Pelvic Type: Adequate Physical Exam Comments: + GBS urine PTSD, on Zoloft 50 Vital Signs: Reviewed Dilatation: 5 Effacement: 100 Station: 0 Membranes: Intact Monitoring: External US FHR- Baseline: 130 Variability: Moderate 6-25bpm Decelerations: None Admit Comment: Admitted to labor and delivery in labor, breathing with uc's NKA, bulging bag of water, breast feeding, Cat 1 strip pelvis proven for 7 pounds + GBS in urine wants epidural, + FM anticipate Assignment: Tiara Downing MD Signature: with User ID: [email or web address] : with User ID: [email or web address]
--- NOTE | 2016-10-24 17:39 | L&D Admission Assessment ---
LD ADM ASMT Datetime Report Generated by CPN: 10/24/2016 17:38 Assessment Type: Admission Assessment (10/23/2016 13:50:Julieta Castanon RN) Onset of Labor: 10/23/2016 00:00 (07/08/2016 01:47:Julieta Castanon RN) Pain Scale: 5 (10/23/2016 14:31:Julieta Castanon RN) Pain Scale: 5 (10/23/2016 13:50:Julieta Castanon RN) Pain Presence: Constant (10/23/2016 14:31:Julieta Castanon RN) Pain Presence: Intermittent (10/23/2016 13:50:Julieta Castanon RN) Pain Type: Burning; Cramping; Ache (10/23/2016 14:31:Julieta Castanon RN) Pain Type: Contraction (10/23/2016 13:50:Julieta Castanon RN) Pain Location: Perineum (10/23/2016 14:31:Julieta Castanon RN) Pain Location: Abdomen (10/23/2016 13:50:Julieta Castanon RN) Frequency (min): pt states 2 minutes apart (10/23/2016 13:50:Julieta Castanon RN) Dilatation (cm): 10.0 (10/23/2016 14:02:Julieta Castanon RN) Dilatation (cm): 5.0 (10/23/2016 13:44:Julieta Castanon RN) Effacement (%): 100 (10/23/2016 14:02:Julieta Castanon RN) Effacement (%): 100 (10/23/2016 13:44:Julieta Castanon RN) Station: 2 (10/23/2016 14:02:Julieta Castanon RN) Station: -1 (10/23/2016 13:44:Julieta Castanon RN) Membranes Status: Ruptured (10/23/2016 14:10:Julieta Castanon RN) Membranes Status: Bulging (10/23/2016 13:44:Julieta Castanon RN) Membranes Rupture D/ (07/08/2016 01:47:Julieta Castanon RN) ROM Method: Artificial (10/23/2016 14:10:Julieta Castanon RN) Amniotic Fluid Color: Clear (10/23/2016 14:10:Julieta Castanon RN) Amniotic Fluid Amount: Moderate (10/23/2016 14:10:Julieta Castanon RN) Amniotic Fluid Odor: Normal (10/23/2016 14:10:Julieta Castanon RN) Level of Consciousness: Fully Conscious (10/23/2016 13:50:Julieta Castanon RN) DTR's/Clonus: DTRs 2+; No Clonus (10/23/2016 13:50:Julieta Castanon RN) Headache: Denies (10/23/2016 13:50:Julieta Castanon RN) Dizziness: No (10/23/2016 13:50:Julieta Castanon RN) Blurred Vision: No (10/23/2016 13:50:Julieta Castanon RN) Extremity Numbness/Tingling : None (10/23/2016 13:50:Julieta Castanon RN) Extremity Movement: Full Range of Motion (10/23/2016 13:50:Julieta Castanon RN) Heart Rhythm: Regular (10/23/2016 13:50:Julieta Castanon RN) Nailbeds: [place] (10/23/2016 13:50:Julieta Castanon RN) Capillary Refill: Less than 3 Seconds (10/23/2016 13:50:Julieta Castanon RN) Facial Edema: None (10/23/2016 13:50:Julieta Castanon RN) Respiratory Effort: Unlabored; Regular Rhythm; Equal Expansion (10/23/2016 13:50:Julieta Castanon RN) Breath Sounds, Left: Clear and Equal (10/23/2016 13:50:Julieta Castanon RN) Breath Sounds, Right: Clear and Equal (10/23/2016 13:50:Julieta Castanon RN) Cough Productivity: None (10/23/2016 13:50:Julieta Castanon RN) Nausea/Vomiting: Denies (10/23/2016 13:50:Julieta Castanon RN) Bowel Sounds: Normoactive; All Quadrants (10/23/2016 13:50:Julieta Castanon RN) RUQ Epigastric Pain: Denies (10/23/2016 13:50:Julieta Castanon RN) Bladder: Nondistended (10/23/2016 13:50:Julieta Castanon RN) Frequency of Urination: No (10/23/2016 13:50:Julieta Castanon RN) Urination Burning: No (10/23/2016 13:50:Julieta Castanon RN) CVA Tenderness: No (10/23/2016 13:50:Julieta Castanon RN) Vaginal Bleeding: None (10/23/2016 13:50:Julieta Castanon RN) Vaginal Discharge Color: N/A (10/23/2016 13:50:Julieta Castanon RN) Skin Color: Normal for Race (10/23/2016 13:50:Julieta Castanon RN) Skin Temperature: Warm (10/23/2016 13:50:Julieta Castanon RN) Skin Moisture: Dry (10/23/2016 13:50:Julieta Castanon RN) Carlos Eduardo Scale Sensory Perception: No Impairment- Responds to verbal commands. Has no sensory deficit which would limit ability to feel or voice pain or discomfort (10/23/2016 13:50:Julieta Castanon RN) Carlos Eduardo Scale Moisture: Rarely Moist- Skin is usually dry. Linen only requires changing at routine intervals (10/23/2016 13:50:Julieta Castanon RN) Carlos Eduardo Scale Activity: Walks Frequently- Walks outside the room at least twice a day and inside room at least every 2 hours during the day. (10/23/2016 13:50:Julieta Castanon RN) Carlos Eduardo Scale Mobility: No Limitations- Makes major and frequent changes in position without assistance (10/23/2016 13:50:Julieta Castanon RN) Carlos Eduardo Scale Nutrition: Excellent- Eats most of every meal. Never refuses a meal. Usually eats a total of 4 or more servings of meat and dairy products. Occasionally eats between meals. Does not require supplementation (10/23/2016 13:50:Julieta Castanon RN) Carlos Eduardo Scale Friction and Shear: No Apparent Problem- Moves in bed and in chair independently and has sufficient muscle strength to lift up completely during move. Maintains good position in bed or chair at all times (10/23/2016 13:50:Julieta Castanon RN) Family Support: Significant Other supportive, at bedside frequently (10/23/2016 13:50:Julieta Castanon RN) Emotional State: Crying; Restless (10/23/2016 13:50:Julieta Castanon RN) Call [place] Within Reach: Yes (10/23/2016 13:50:Julieta Castanon RN) Side Rails Up: Yes (10/23/2016 13:50:Julieta Castanon RN) Bed Wheels Locked: Yes (10/23/2016 13:50:Julieta Castanon RN) Arm Bands Present: Yes (10/23/2016 13:50:Julieta Castanon RN) Fall Risk History of Falling: (0) No (10/23/2016 13:50:Julieta Castanon RN) Fall Risk Secondary Diagnosis: (0) No (10/23/2016 13:50:Julieta Castanon RN) Fall Risk Ambulatory Aid: (0) None/Bedrest/Wheelchair/Nurse Assist (10/23/2016 13:50:Julieta Castanon RN) Fall Risk IV Therapy: (0) No (10/23/2016 13:50:Julieta Castanon RN) Fall Risk Gait: (0) Normal/Bedrest/Immobile (10/23/2016 13:50:Julieta Castanon RN) Fall Risk Mental Status: (0) Oriented to Own Ability (10/23/2016 13:50:Julieta Castanon RN)
[2016-10-25] MEDS: IBUPROFEN 800 MG TABLET PO SCH (06:10)
[2016-10-25 07:11] LABS: ABSOLUTE BASOPHILS # (AUTO) 0.1 10^3/uL (0.0-0.2); ABSOLUTE EOSINOPHILS # (AUTO) 0.5 10^3/uL (0.0-0.6); ABSOLUTE LYMPHOCYTES (AUTO) 3.9 10^3/uL (0.5-4.7); ABSOLUTE MONOCYTES (AUTO) 1.5 10^3/uL (0.1-1.4); ABSOLUTE NEUT (AUTO) 6.8 10^3/uL (1.7-8.2); BASOPHILS % (AUTO) 0.4 % (0-2); EOSINOPHILS % (AUTO) 3.7 % (0-6); HEMATOCRIT 21.2 % (36.0-47.0); HGB HCT DIFFERENCE -0.2; LYMPHOCYTES % (AUTO) 30.3 % (13-45); MEAN CORPUSCULAR HEMOGLOBIN 27.2 pg (27.0-33.4); MEAN CORPUSCULAR HGB CONC 32.8 g/dL (32.0-36.0); MEAN CORPUSCULAR VOLUME 83 fl (80-97); RED BLOOD COUNT 2.56 10^6/uL (3.72-5.28); RED CELL DISTRIBUTION WIDTH 14.3 % (11.5-14.0); SEGMENTED NEUTROPHILS % (AUTO) 53.6 % (42-78); WHITE BLOOD COUNT 12.8 10^3/uL (4.0-10.5)
[2016-10-25 08:57] VITALS: BP 117/76
--- NOTE | 2016-10-25 10:02 | PDOC DISCHARGE SUMMARY ---
Final Diagnosis Discharge Date: 10/25/16 - Final Diagnosis (1) Anemia due to acute blood loss Is this a current diagnosis for this admission?: Yes (2) Normal vaginal delivery Is this a current diagnosis for this admission?: Yes Discharge Data - Discharge Medication Home Medications: Vit/Iron Fumarate/FA [ Tablet] 1 tab PO DAILY 07/08/16 Docusate Sodium [Colace 100 mg Capsule] 100 mg PO BID #60 capsule 10/25/16 Ferrous Sulfate [Feosol 325 mg Tablet] 325 mg PO BID #30 tablet 10/25/16 Ibuprofen [Motrin 800 mg Tablet] 800 mg PO Q8 #60 tablet 10/25/16 Gestational Age: 39.1 Reason(s) for Admission: Onset of Labor Procedures: NST Intrapartum Procedure(s): Spontaneous Vaginal Delivery - [place] Data Baby 1 Female at 1 minute: 8 at 5 minutes: 9 Weight: 3175 kg Home with Mother: Yes Complications: No - Diagnosis Test Laboratory: Temp Pulse Resp BP Pulse Ox 97.8 F 86 15 117/76 100 10/25/16 08:31 10/25/16 08:31 10/25/16 08:31 10/25/16 08:31 10/25/16 08:31 10/23/16 10/23/16 10/23/16 13:35 14:09 18:21 RBC 4.14 3.32 L Hgb 11.2 L 9.2 L Hct 34.3 L 27.5 L Urine Opiates Screen NEGATIVE 10/24/16 10/25/16 07:25 06:33 RBC 2.73 L 2.56 L Hgb 7.6 L 7.0 L Hct 22.5 L 21.2 L Urine Opiates Screen - Discharge information/Instructions Discharge Activity: Activity As Tolerated, No Lifting Over 10 Pounds, Pelvic Rest, No tub bath Discharge Diet: Regular Disposition: HOME, SELF-CARE Follow up with: [facility] in: 4, Weeks
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
== END 2016-10-25 11:47 | disposition home or self-care (01) | DRG 775 ==
LOC: LC 13:26 → LR 13:54 → 2S 20:25
PROVIDERS: ADMIT Obstetrics & Gynecology; ATTEND Obstetrics & Gynecology
PROC: 10E0XZZ Delivery of Products of Conception, External Approach (ICD-10-PCS; principal; 2016-10-23)
PROC: 10907ZC Drainage of Amniotic Fluid, Therapeutic from Products of Conception, Via Natural or Artificial Opening (ICD-10-PCS; 2016-10-23)
DX: O99.824 Streptococcus B carrier state complicating childbirth (principal); D62 Acute posthemorrhagic anemia; O99.344 Other mental disorders complicating childbirth; F32.9 Major depressive disorder, single episode, unspecified; O62.3 Precipitate labor; O77.0 Labor and delivery complicated by meconium in amniotic fluid; O99.02 Anemia complicating childbirth; Z3A.39 39 weeks gestation of pregnancy; Z37.0 Single live birth
CPT/HCPCS: 36415; 80307; 81005; 82803; 85025; 85027; 85610; 85730; 86592; 86850; 86900; 86901; 88307; J2210; J2405; J2540; J2590; J3490

== ENCOUNTER 2017-04-05 04:29 | Emergency (ER) | payer MEDICAID ==
[2017-04-05] MEDS ORDERED: NORMAL SALINE 1000 ML 1,000 ML IV ONE ×2 (05:23→06:07)
--- NOTE | 2017-04-05 05:25 | ER Document Report ---
Doctor's Note Notes: 04/05/17 05:23 Patient is a 21-year-old female presents with complaint of difficulty breathing and coughing. She has since been ongoing for about 4 days to week. She has used an inhaler at home but is not helped. She does smoke on occasion. She is also had some vomiting and diarrhea. She says it does hurt a little bit take a deep breath. She did have vaginal delivery 6 months ago. She has had no leg pain or leg swelling. No other complaints at this time. No history of DVT or PE. No fevers at home. On exam her lungs are clear. She is slightly tachypneic. She is tachycardic. I will obtain baseline blood work and start with a chest x-ray to begin her workup. We will also give her IV fluids.
--- NOTE | 2017-04-05 05:45 | RADIOLOGY REPORT (SQ) ---
EXAM DESCRIPTION: CHEST PA/LAT COMPLETED DATE/TIME: 04/05/2017 5:29 am REASON FOR STUDY: cough COMPARISON: None. EXAM PARAMETERS: NUMBER OF VIEWS: two views TECHNIQUE: Digital Frontal and Lateral radiographic views of the chest acquired. RADIATION DOSE: NA LIMITATIONS: none FINDINGS: LUNGS AND PLEURA: No opacities, masses or pneumothorax. No pleural effusion. MEDIASTINUM AND HILAR STRUCTURES: No masses or contour abnormalities. HEART AND VASCULAR STRUCTURES: Heart normal size. No evidence for failure. BONES: No acute findings. HARDWARE: None in the chest. OTHER: No other significant finding. IMPRESSION: NO SIGNIFICANT RADIOGRAPHIC FINDING IN THE CHEST. TECHNICAL DOCUMENTATION: JOB ID: [id number] [employer]formerly [employer] All Rights Reserved
[2017-04-05 05:57] LABS: ANION GAP 17 (5-19); BLOOD UREA NITROGEN 10 mg/dL (7-20); CALCIUM 10.4 mg/dL (8.4-10.2); CARBON DIOXIDE 21 mmol/L (22-30); CHLORIDE 107 mmol/L (98-107); CREATININE RESULT 0.76 mg/dL (0.52-1.25); GLUCOSE 108 mg/dL (75-110); POTASSIUM 3.7 mmol/L (3.6-5.0); SODIUM 144.9 mmol/L (137-145)
[2017-04-05 06:22] LABS: RED BLOOD COUNT 4.91 10^6/uL (3.72-5.28)
[2017-04-05 06:23] LABS: HEMATOCRIT 39.9 % (36.0-47.0); HEMOGLOBIN 13.9 g/dL (12.0-15.5); HGB HCT DIFFERENCE 1.8; MEAN CORPUSCULAR HEMOGLOBIN 28.2 pg (27.0-33.4); MEAN CORPUSCULAR HGB CONC 34.7 g/dL (32.0-36.0); MEAN CORPUSCULAR VOLUME 81 fl (80-97); RED CELL DISTRIBUTION WIDTH 15.8 % (11.5-14.0)
[2017-04-05 06:31] LABS: BAND NEUTROPHILS % (MANUAL) 2 % (3-5); BASOPHILS % (MANUAL) 0 % (0-2); EOSINOPHILS % (MANUAL) 0 % (0-6); LYMPHOCYTES % (MANUAL) 8 % (13-45); TOTAL CELLS COUNTED 100
[2017-04-05 06:32] LABS: POIKILOCYTOSIS SLIGHT; TOXIC GRANULATION SLIGHT
[2017-04-05 06:33] LABS: OVALOCYTES SLIGHT; SCHISTOCYTES SLIGHT; TEAR DROP CELLS SLIGHT
[2017-04-05 06:41] LABS: APPEARANCE,URINE SLIGHTLY-CLOUDY; BILIRUBIN,URINE SMALL (NEGATIVE); GLUCOSE, URINE NEGATIVE (NEGATIVE); KETONES,URINE TRACE mg/dL (NEGATIVE); LEUKOCYTE ESTERASE,URINE TRACE (NEGATIVE); NITRITE,URINE NEGATIVE (NEGATIVE); PROTEIN,URINE 30 mg/dL (NEGATIVE); URINE SPECIFIC GRAVITY 1.034; UROBILINOGEN,URINE NEGATIVE mg/dL (<2.0)
[2017-04-05] MEDS ORDERED: KETOROLAC TROMETHAMINE INJ/PF 30 MG/1 ML SDV IV ONE (07:18)
[2017-04-05 07:25] VITALS: BP 99/70
--- NOTE | 2017-04-05 07:40 | ER Document Report ---
ED General - General Chief Complaint: Cough Stated Complaint: VOMITING/COUGHING Time Seen by Provider: 04/05/17 05:22 Mode of Arrival: Ambulatory Information source: Patient Notes: 21-year-old female presents with complaints of nausea vomiting after coughing. Patient notes she has been coughing for approximately 1 week. Patient denies any DVT or PE risk factors. Patient states she may have had fever and chills TRAVEL OUTSIDE OF THE [place] IN LAST 30 DAYS: No - HPI Onset: Last week Onset/Duration: Persistent Quality of pain: Achy Severity: Mild Pain Level: 1 Associated symptoms: Body/muscle aches, Productive cough, Nausea, Vomiting, Shortness of breath Exacerbated by: Coughing Relieved by: Denies Similar symptoms previously: No Recently seen / treated by doctor: No - Related Data Allergies/Adverse Reactions: kenton Allergy (Verified 10/23/16 13:38) Past Medical History - Social History Smoking Status: Never Smoker Cigarette use (# per day): No Chew tobacco use (# tins/day): No Smoking Education Provided: No Frequency of alcohol use: None Drug Abuse: None Family History: Reviewed & Not Pertinent Patient has suicidal ideation: No Patient has homicidal ideation: No Renal/ Medical History: Denies: Hx Peritoneal Dialysis Psychiatric Medical History: Reports: Hx Depression Surgical Hx: Negative - Immunizations Immunizations up to date: Yes Hx Diphtheria, Pertussis, Tetanus Vaccination: Yes Review of Systems - Review of Systems Notes: REVIEW OF SYSTEMS: CONSTITUTIONAL : Possible fevers chills recent illness EENT: Denies eye, ear, throat, or mouth pain or symptoms. Denies nasal or sinus congestion or discharge. Denies throat, tongue, or mouth swelling or difficulty swallowing. CARDIOVASCULAR: Denies chest pain. Denies palpitations or racing or irregular heart beat. Denies ankle edema. RESPIRATORY: Admits cough shortness of breath. GASTROINTESTINAL: Admits to nausea vomiting GENITOURINARY: Denies difficulty urinating, painful urination, burning, frequency, blood in urine, or discharge. FEMALE GENITOURINARY: Denies vaginal bleeding, heavy or abnormal periods, irregular periods. Denies vaginal discharge or odor. MUSCULOSKELETAL: Denies back or neck pain or stiffness. Denies joint pain or swelling. SKIN: Denies rash, lesions or sores. HEMATOLOGIC : Denies easy bruising or bleeding. LYMPHATIC: Denies swollen, enlarged glands. NEUROLOGICAL: Denies confusion or altered mental status. Denies passing out or loss of consciousness. Denies dizziness or lightheadedness. Denies headache. Denies weakness or paralysis or loss of use of either side. Denies problems with gait or speech. Denies sensory loss, numbness, or tingling. Denies seizures. PSYCHIATRIC: Denies anxiety or stress. Denies depression, suicidal ideation, or homicidal ideation. ALL OTHER SYSTEMS REVIEWED AND NEGATIVE. PHYSICAL EXAMINATION: GENERAL: Well-appearing, well-nourished and in no acute distress. HEAD: Atraumatic, normocephalic. EYES: Pupils equal round and reactive to light, extraocular movements intact, conjunctiva are normal. ENT: Nares patent, oropharynx clear without exudates. Moist mucous membranes. NECK: Normal range of motion, supple without lymphadenopathy LUNGS: Breath sounds clear to auscultation bilaterally and equal. No wheezes rales or rhonchi. HEART: Tachycardic ABDOMEN: Soft, nontender, nondistended abdomen. No guarding, no rebound. No masses appreciated. Female : deferred Musculoskeletal: Normal range of motion, no pitting or edema. No cyanosis. NEUROLOGICAL: Cranial nerves grossly intact. Normal speech, normal gait. Normal sensory, motor exams PSYCH: Normal mood, normal affect. SKIN: Warm, Dry, normal turgor, no rashes or lesions noted. Dictation was performed using [employer] voice recognition software Physical Exam - Vital signs Vitals: Temp Pulse Resp BP Pulse Ox 98.5 F 126 H 18 117/74 99 04/05/17 04:49 04/05/17 04:49 04/05/17 04:49 04/05/17 04:49 04/05/17 04:49 Course - Re-evaluation Re-evalutation: 04/05/17 07:35 Patient notes she feels much better, nausea is well controlled she does have chest wall pain from her coughing. D-dimer was negative there is noted elevated white count which I believe may be secondary to infectious process as well as nausea vomiting. Heart rate has improved significantly. I will discharge at this time 04/05/17 08:12 After performing a Medical Screening Examination, I estimate there is LOW risk for ACUTE CORONARY SYNDROME, RESPIRATORY FAILURE, SEPSIS OR MENINGITIS, thus I consider the discharge disposition reasonable. I have reevaluated this patient multiple times and no significant life threatening changes are noted. The patient and I have discussed the diagnosis and risks, and we agree with discharging home with close follow-up. We also discussed returning to the Emergency Department immediately if new or worsening symptoms occur. We have discussed the symptoms which are most concerning (e.g., changing or worsening pain, trouble swallowing or breathing, neck stiffness, fever) that necessitate immediate return. - Vital Signs Vital signs: Temp Pulse Resp BP Pulse Ox 98.5 F 126 H 22 H 99/70 L 100 04/05/17 04:49 04/05/17 04:49 04/05/17 07:01 04/05/17 07:01 04/05/17 07:01 - Laboratory Result Diagrams: 04/05/17 05:36 04/05/17 05:36 Laboratory results interpreted by me: 04/05/17 04/05/17 04/05/17 05:36 05:36 06:07 WBC 24.0 H RDW 15.8 H Seg Neuts % (Manual) 85 H Band Neutrophils % 2 L Lymphocytes % (Manual) 8 L Abs Neuts (Manual) 20.9 H Carbon Dioxide 21 L Calcium 10.4 H Urine Protein 30 H Urine Ketones TRACE H Urine Bilirubin SMALL H Ur Leukocyte Esterase TRACE H - Diagnostic Test Radiology reviewed: Image reviewed, Reports reviewed - No acute abnormality Discharge - Discharge Clinical Impression: Cough, Tachycardia Nausea & vomiting Qualifiers: Vomiting type: unspecified Vomiting Intractability: non-intractable Qualified Code(s): R11.2 - Nausea with vomiting, unspecified Leukocytosis Qualifiers: Leukocytosis type: unspecified Qualified Code(s): D72.829 - Elevated white blood cell count, unspecified Condition: Stable Disposition: HOME, SELF-CARE Instructions: Vomiting ([facility]) Additional Instructions: Follow up with your physician tomorrow for further care or return to the ED IMMEDIATELY if symptoms worsen or new concerns occur. If you cannot afford to follow up with your primary care physician a list of low cost clinics have been provided at the end of your discharge papers as well. Prescriptions: Azithromycin 250 mg PO ASDIR PRN #6 tablet PRN Reason: Dextromethorphan HBr [Tussin Cough] 15 mg PO Q8 #20 capsule Promethazine HCl [Phenergan 25 mg Tablet] 1 - 2 tab PO Q6H PRN #15 tablet PRN Reason: Forms: Return to Work
--- NOTE | 2017-04-05 09:45 | EKG REPORT ---
SEVERITY:- BORDERLINE ECG - SINUS TACHYCARDIA PROBABLE LEFT ATRIAL ABNORMALITY : Confirmed by: Clem Joe 05-Apr-2017 09:44:50
== END 2017-04-05 08:00 | disposition home or self-care (01) ==
LOC: ER 04:29
DX: R05 Cough (principal); R11.2 Nausea with vomiting, unspecified; M79.1 Myalgia; R06.02 Shortness of breath; R00.0 Tachycardia, unspecified; R07.89 Other chest pain; D72.829 Elevated white blood cell count, unspecified; Z91.018 Allergy to other foods
CPT/HCPCS: 93005; 99284; 96361; 96374; 36415; 84703; 85025; 80048; 81001; 85379; 71020; 93010; J1885; J7030

== ENCOUNTER 2018-05-01 12:51 | Emergency (ER) | payer MEDICAID, OTHER ==
[2018-05-01 14:39] VITALS: BP 103/74
[2018-05-01] MEDS ORDERED: AZITHROMYCIN 250 MG TABLET PO ONE (14:39)
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
== END 2018-05-01 14:48 | disposition home or self-care (01) ==
LOC: ER 12:51
DX: J01.11 Acute recurrent frontal sinusitis (principal); R51 Headache; R40.2412 Glasgow coma scale score 13-15, at arrival to emergency department
CPT/HCPCS: 99284